=== PATIENT | female | born 1945 | race Hispanic/Latino ===

== ENCOUNTER 2017-12-24 17:05 | Emergency (ER) | payer OTHER ==
[2017-12-24] MEDS ORDERED: HYDROCODONE/APAP 5/325 MG TAB ONE (17:42)
--- NOTE | 2017-12-24 18:14 | RAD REPORT ---
EXAM DESCRIPTION: Shoulder Right 2 View - 12/24/2017 6:05 pm CLINICAL HISTORY: Fall, right shoulder pain COMPARISON: None. TECHNIQUE: Internal rotation and scapular Y-view obtained. FINDINGS: No dislocation of the humeral head. Degenerative change present at the undersurface of the acromion. No AC joint spurring. Humeral head fracture is identified not optimally visualized. This p rimarily involves the greater tuberosity. Approximately 3 mm of distraction noted. No pathologic comp onent. IMPRESSION: Proximal humeral head fracture as detailed. No dislocation.
[2017-12-24] MEDS ORDERED: MORPHINE 4 MG/ML SYR ONE (18:31)
--- NOTE | 2017-12-24 18:49 | EDPHYS ---
Physician Documentation [facility] Name: Daisy Corcoran Age: 72 yrs Sex: Female : 1945 Arrival Date: 12/24/2017 Time: 17:11 Bed 17 Private MD: ED Physician Gabe Muniz HPI: 12/24 18:42 This 72 yrs old Female presents to ER via EMS with complaints of Shoulder Pain.gs 18:42 The patient or guardian complains of decreased range of motion, deformity, an injury. gs right shoulder. Context: The problem was sustained at home, resulted from a fall, while walking. Onset: The symptoms/episode began/occurred acutely, just prior to arrival. Modifying factors: the symptoms are alleviated by nothing. The symptoms are aggravated by movement. Associated signs and symptoms: Pertinent negatives: Numbness in right arm. Severity of symptoms: At their worst the symptoms were moderate, in the emergency department the symptoms are unchanged. The patient has not experienced similar symptoms in the past. Historical: - Allergies: 17:19 grapes; jl7 17:19 Tomatoes; jl7 17:19 NKDA; jl7 - Home Meds: 17:19 chlorthalidone 25 mg Oral tab 1 tab once daily [Active]; clonidine HCl 0.2 mg Oral tab jl7 1 tab 2 times per day [Active]; felodipine 10 mg Oral Tb24 1 tab once daily [Active]; gabapentin 300 mg Oral cap 1 cap 3 times per day [Active]; hydralazine 50 mg Oral tab 1 tab three times a day [Active]; isosorbide mononitrate 60 mg Oral Tb24 1 tab once daily [Active]; levothyroxine 125 mcg tab 1 tab once daily [Active]; losartan potassium 100 mg daily [Active]; metoprolol tartrate 100 mg Oral tab 1 tab 2 times per day [Active]; omeprazole 40 mg Oral cpDR 1 cap once daily [Active]; oxybutynin chloride 5 mg Oral tr24 1 tab twice a day [Active]; prednisone 10 mg Oral tab once daily [Active]; ropinirole 0.25 mg Oral tab 1 tab daily [Active]; simvastatin 40 mg Oral tab 1 tab once daily [Active]; tramadol 50 mg Oral tab 2 tabs three times a day [Active]; vit D3 [Active]; - PMHx: 17:19 Hyperlipidemia; Hypertension; Hypothyroidism; jl7 - PSHx: 17:19 right wrist; jl7 - Immunization history:: Adult Immunizations up to date. - Social history:: Smoking status: Patient/guardian denies using tobacco. - Ebola Screening: : No symptoms or risks identified at this time. ROS: 18:42 All other systems are negative. gs Exam: 18:42 Head/Face: Normocephalic, atraumatic. Eyes: Pupils equal round and reactive to light, gs extra-ocular motions intact. Lids and lashes normal. Conjunctiva and sclera are non-icteric and not injected. Cornea within normal limits. Periorbital areas with no swelling, redness, or edema. ENT: Nares patent. No nasal discharge, no septal abnormalities noted. Tympanic membranes are normal and external auditory canals are clear. Oropharynx with no redness, swelling, or masses, exudates, or evidence of obstruction, uvula midline. Mucous membranes moist. Neck: Trachea midline, no thyromegaly or masses palpated, and no cervical lymphadenopathy. Supple, full range of motion without nuchal rigidity, or vertebral point tenderness. No Meningismus. Chest/axilla: Normal chest wall appearance and motion. Nontender with no deformity. No lesions are appreciated. Cardiovascular: Regular rate and rhythm with a normal S1 and S2. No gallops, murmurs, or rubs. Normal PMI, no JVD. No pulse deficits. Respiratory: Lungs have equal breath sounds bilaterally, clear to auscultation and percussion. No rales, rhonchi or wheezes noted. No increased work of breathing, no retractions or nasal flaring. Abdomen/GI: Soft, non-tender, with normal bowel sounds. No distension or tympany. No guarding or rebound. No evidence of tenderness throughout. Back: No spinal tenderness. No costovertebral tenderness. Full range of motion. Skin: Warm, dry with normal turgor. Normal color with no rashes, no lesions, and no evidence of cellulitis. Neuro: Awake and alert, GCS 15, oriented to person, place, time, and situation. Cranial nerves II-XII grossly intact. Motor strength 5/5 in all extremities. Sensory grossly intact. Cerebellar exam normal. Normal gait. 18:42 Constitutional: The patient appears alert, awake, uncomfortable. 18:42 Musculoskeletal/extremity: Pulses: are normal with no appreciated deficits, Joints: the right shoulder displays deformity, limited range of motion, pain at rest, painful range of motion, swelling, tenderness. Vital Signs: 17:15 BP 145 / 51; Pulse 69; Resp 18 S; Temp 97.8(O); Pulse Ox 95% on R/A; Weight 92.53 kg 7 (R); Height 5 ft. 4 in. (162.56 cm) (R); Pain 10/10; 18:15 BP 154 / 52; Pulse 65; Resp 16; Pulse Ox 95% on R/A; Pain 10/10; jl7 17:15 Body Mass Index 35.02 (92.53 kg, 162.56 cm) [facility] MDM: 17:26 Patient medically screened. 18:42 Differential diagnosis: Anterior dislocation with fracture, Posterior dislocation with gs fracture, humeral head fracture. Data reviewed: vital signs, nurses notes. Response to treatment: the patient's symptoms have mildly improved after treatment, and as a result, I will discharge patient. Physician consultation: Shree Sellers MD and will see patient in office, in 2-3 days. 12/24 17:26 Order name: Shoulder Right (2 View) XRAY; Complete Time: 18:16 12/24 18:21 Order name: Shoulder Right Wo Cont; Complete Time: 19:00 EDMS Administered Medications: 17:40 Drug: [place] 5 mg-325 mg 1 tabs Route: PO; [facility] 18:40 Follow up: Response: No adverse reaction; Pain is unchanged, physician notified [facility] 18:58 Drug: morphine 5 mg {Note: Administered IM to left deltoid per Dr. Muniz.} Route: IVP; [facility] Site: Other; Disposition: 12/24/17 18:48 Discharged to Home. Impression: 3-part fracture of surgical neck of right humerus. - Condition is Stable. - Discharge Instructions: Humerus Fracture Treated With Immobilization, [id number]. - Prescriptions for Tylenol- Codeine #4 300-60 mg Oral Tablet - take 1 tablet by ORAL route every 6 hours As needed; 12 tablet. - Medication Reconciliation Form, Thank You Letter, Antibiotic Education, Prescription Opioid Use form. - Follow up: Shree Sellers MD; When: 2 - 3 days; Reason: Recheck today's complaints, Re-evaluation by your physician. Signatures: Dispatcher [employer] EDDede Narayanan RN RN lp1 Pepito Lamb RN RN jl7 Gabe Muniz MD MD gs Corrections: (The following items were deleted from the chart) 19:28 18:48 12/24/2017 18:48 Discharged to Home. Impression: 3-part fracture of surgical neck lp1 of right humerus. Condition is Stable. Forms are Medication Reconciliation Form, Thank You Letter, Antibiotic Education, Prescription Opioid Use. Follow up: Dr. Shree Sellers; When: 2 - 3 days; Reason: Recheck today's complaints, Re-evaluation by your physician. gs
--- NOTE | 2017-12-24 18:49 | ER ---
Nurse's Notes [facility] Name: Daisy Corcoran Age: 72 yrs Sex: Female : 1945 Arrival Date: 12/24/2017 Time: 17:11 Bed 17 Private MD: Diagnosis: 3-part fracture of surgical neck of right humerus Presentation: 12/24 17:13 Presenting complaint: EMS states: She lost her footing while in the kitchen and fell on jl7 her right shoulder. She was laying on her right shoulder and it appeared to be hyperextended upon arrival. She did not hit her head and denies LOC. Transition of care: patient was not received from another setting of care. Onset of symptoms was December 24, 2017. Risk Assessment: Do you want to hurt yourself or someone else? Patient reports no desire to harm self or others. Initial Sepsis Screen: Does the patient meet any 2 criteria? No. Patient's initial sepsis screen is negative. Does the patient have a suspected source of infection? No. Patient's initial sepsis screen is negative. Care prior to arrival: Splint applied. Glucose check: 133. 17:13 Method Of Arrival: EMS: [facility] 17:13 Acuity: VIC 4 jl7 Triage Assessment: 17:15 General: Appears uncomfortable, Behavior is cooperative, appropriate for age. Pain: jl7 Complains of pain in right shoulder Pain currently is 10 out of 10 on a pain scale. Neuro: Level of Consciousness is awake, alert, obeys commands, Oriented to person, place, time, situation. Cardiovascular: Patient's skin is warm and dry. Respiratory: Airway is patent Respiratory effort is even, unlabored, Respiratory pattern is regular, symmetrical. Musculoskeletal: Range of motion: limited in right shoulder. Historical: - Allergies: 17:19 grapes; jl7 17:19 Tomatoes; jl7 17:19 NKDA; jl7 - Home Meds: 17:19 chlorthalidone 25 mg Oral tab 1 tab once daily [Active]; clonidine HCl 0.2 mg Oral tab jl7 1 tab 2 times per day [Active]; felodipine 10 mg Oral Tb24 1 tab once daily [Active]; gabapentin 300 mg Oral cap 1 cap 3 times per day [Active]; hydralazine 50 mg Oral tab 1 tab three times a day [Active]; isosorbide mononitrate 60 mg Oral Tb24 1 tab once daily [Active]; levothyroxine 125 mcg tab 1 tab once daily [Active]; losartan potassium 100 mg daily [Active]; metoprolol tartrate 100 mg Oral tab 1 tab 2 times per day [Active]; omeprazole 40 mg Oral cpDR 1 cap once daily [Active]; oxybutynin chloride 5 mg Oral tr24 1 tab twice a day [Active]; prednisone 10 mg Oral tab once daily [Active]; ropinirole 0.25 mg Oral tab 1 tab daily [Active]; simvastatin 40 mg Oral tab 1 tab once daily [Active]; tramadol 50 mg Oral tab 2 tabs three times a day [Active]; vit D3 [Active]; - PMHx: 17:19 Hyperlipidemia; Hypertension; Hypothyroidism; jl7 - PSHx: 17:19 right wrist; jl7 - Immunization history:: Adult Immunizations up to date. - Social history:: Smoking status: Patient/guardian denies using tobacco. - Ebola Screening: : No symptoms or risks identified at this time. Screenin:26 Abuse screen: Denies threats or abuse. Denies injuries from another. Nutritional jl7 screening: No deficits noted. Tuberculosis screening: No symptoms or risk factors identified. Fall Risk Fall in past 12 months (25 points). Total Oliver Fall Scale indicates Low Risk Score (25-44 pts). Fall prevention measures have been instituted. Side Rails Up X 2 Placed close to Nursing Station Frequent Obs/Assesments occuring Family Present and informed to notify staff if they need to leave bedside As available Patient and Family Educated on Fall Prevention Program and strategies. Assessment: 17:15 General: See triage assessment. jl7 18:15 Reassessment: No changes from previously documented assessment. Patient and/or family jl7 updated on plan of care and expected duration. Pain level reassessed. Patient is alert, oriented x 3, equal unlabored respirations, skin warm/dry/pink. 18:55 Reassessment: Dr. Muniz at bedside discussing plan of care. jl7 Vital Signs: 17:15 BP 145 / 51; Pulse 69; Resp 18 S; Temp 97.8(O); Pulse Ox 95% on R/A; Weight 92.53 kg jl7 (R); Height 5 ft. 4 in. (162.56 cm) (R); Pain 10/10; 18:15 BP 154 / 52; Pulse 65; Resp 16; Pulse Ox 95% on R/A; Pain 10/10; jl7 17:15 Body Mass Index 35.02 (92.53 kg, 162.56 cm) jl7 ED Course: 17:11 Patient arrived in ED. 17:12 Gabe Muniz MD is Attending Physician. gs 17:13 Pepito Lamb, SATINDER is Primary Nurse. jl7 17:15 Arm band placed on right wrist. jl7 17:16 Triage completed. jl7 17:26 Patient has correct armband on for positive identification. Bed in low position. Call jl7 light in reach. Side rails up X 1. Pulse ox on. NIBP on. 17:57 X-ray completed. Portable x-ray completed in exam room. Patient tolerated procedure ml well. 17:59 Shoulder Right (2 View) XRAY In Process Unspecified. EDMS 18:15 No provider procedures requiring assistance completed. Patient did not have IV access jl7 during this emergency room visit. 18:40 Shoulder Right Wo Cont In Process Unspecified. EDMS 18:48 Shree Sellers MD is Referral Physician. gs 19:10 Primary Nurse role handed off by Pepito Lamb RN jl7 19:27 Dede Casarez, RN is Primary Nurse. lp1 19:28 Sling applied to right arm. lp1 Administered Medications: 17:40 Drug: [place] 5 mg-325 mg 1 tabs Route: PO; jl7 18:40 Follow up: Response: No adverse reaction; Pain is unchanged, physician notified jl7 18:58 Drug: morphine 5 mg {Note: Administered IM to left deltoid per Dr. Muniz.} Route: IVP; jl7 Site: Other; Outcome: 18:48 Discharge ordered by . gs 19:27 Discharged to home via wheelchair, with significant other. lp1 19:27 Condition: good 19:27 Discharge instructions given to patient, significant other, Instructed on discharge instructions, follow up and referral plans. medication usage, Demonstrated understanding of instructions, follow-up care, medications, Prescriptions given X 1. 19:28 Patient left the ED. lp1 Signatures: Dispatcher [employer] EDOH Sharmila Maradiaga Isamar Bundy RN RN Dede Casarez, RN RN lp1 Pepito Lamb RN RN jl7 Gabe Muniz MD MD gs Corrections: (The following items were deleted from the chart) 19:04 06:58 morphine 5 mg IVP in Other jl7 jl7
--- NOTE | 2017-12-24 18:57 | RAD REPORT ---
EXAM DESCRIPTION: CT - Shoulder Right Wo Cont - 12/24/2017 6:40 pm CLINICAL HISTORY: Fall, shoulder pain, humerus fracture COMPARISON: Right shoulder same date TECHNIQUE: Axial 3 millimeter thick images of the shoulder were obtained with sagittal and coronal 2 millimeter reformatted images. FINDINGS: Transverse fracture is present near the surgical neck. There is an additional comminuted f racture involving the greater tuberosity. Fracture extends to the lateral margin of the bicipital yan ove. There is minimal impaction along the lateral aspect of the surgical neck fracture site. No patho logic bone process. Imaged portions of the scapula show no fracture. Degenerative changes involve the undersurface of the acromion. No AC joint separation. Acromial humeral joint space is still normal r zion. IMPRESSION: Comminuted proximal humerus fracture involving the surgical neck as well as the greater tuberosity. There is mild impaction. No dislocation. Humerus is internally rotated.
[2017-12-24 19:39] VITALS: BP 154/52; O2SAT 95
[2017-12-24 19:40] VITALS: TEMP 97.8
== END 2017-12-24 19:28 | disposition home or self-care (01) ==
LOC: ER 17:05
DX: S42.231A 3-part fracture of surgical neck of right humerus, initial encounter for closed fracture (principal); W18.30XA Fall on same level, unspecified, initial encounter; Y93.01 Activity, walking, marching and hiking; Y92.009 Unspecified place in unspecified non-institutional (private) residence as the place of occurrence of the external cause; Z91.018 Allergy to other foods; I10 Essential (primary) hypertension; E78.5 Hyperlipidemia, unspecified; E03.9 Hypothyroidism, unspecified
CPT/HCPCS: 73200; 96374; 99284

== ENCOUNTER 2019-03-27 09:11 | Inpatient (IN) | payer OTHER ==
[~2019-03-27 09:11] MED LIST: ETOMIDATE 20 MG/10 ML VIAL IV ONE; SUCCINYLCHOLINE 20 MG/ML (10 ML) IV ONE
--- OUTSIDE RECORDS SUMMARY | 2019-03-27 09:12 | XMS REPORT ---
:1945 Author Organization [facility] Address [facility] [place] [address] Care Team Providers Name Role Phone Unavailable Unavailable Unavailable Payers Payer Name Policy Type Policy Number Effective Date Expiration Date Problems This patient has no known problems. Allergies, Adverse Reactions, Alerts Allergy Allergy Status Severity Reaction(s) Onset Inactive Treating Comments Name Type Date Date Clinician manjinder REYNOSO Active Heath 2017-12 00:00:0 0 Medications This patient has no known medications.
[2019-03-27] MEDS ORDERED: LEVALBUTEROL 1.25 MG/3 ML NEB ONE (09:37)
[2019-03-27] MEDS ORDERED: CEFTRIAXONE/SWI 1gm 1 GM/10 ML SYR ONE (09:38)
[2019-03-27 09:40] LABS: Blood O2 Saturation 88.5 % (92-98.5)
[2019-03-27 09:45] LABS: Absolute Lymphocytes (CBC) 0.7 K/uL (0.7-4.9); Basophils % 1.3 % (0-1.3); Hematocrit 20.2 % (36.0-45.0); Lymphocytes % 8.5 % (15.3-44.8); MPV 9.1 fL (7.6-11.3); RBC Red Blood Cell Count 2.51 M/uL (3.86-4.86)
--- NOTE | 2019-03-27 09:45 | RAD REPORT ---
EXAM DESCRIPTION: RAD - Chest Single View - 03/27/2019 9:37 am CLINICAL HISTORY: SOB Chest pain. COMPARISON: Chest Pa And Lat (2 Views) dated 05/02/2017; Chest Single View dated 04/21/2017; Chest Si ngle View dated 09/09/2016; CHEST SINGLE VIEW dated 04/19/2012 FINDINGS: Portable technique limits examination quality. Severe bilateral pulmonary opacities are present probably representing pulmonary edema or pneumonia. The heart is mildly enlarged in size. No displaced fractures.
[2019-03-27 09:47] LABS: Protime INR 1.07
[2019-03-27 09:59] LABS: Urine Blood 2+ (NEG); Urine Glucose NEGATIVE (NEG); Urine Protein 3+ (NEG); Urine Specific Gravity 1.025 (1.005-1.030); Urine pH 5.5 (5.0-7.0)
[2019-03-27 10:03] LABS: ALT/SGPT 17 U/L (12-78); AST/SGOT 27 U/L (15-37); Albumin 2.2 g/dL (3.4-5.0); Alkaline Phosphatase 61 U/L (45-117); BUN Blood Urea Nitrogen 30 mg/dL (7-18); Bicarbonate 24 mmol/L (21-32); Bilirubin Direct 0.2 mg/dL (0-0.2); Bilirubin Total 0.5 mg/dL (0.2-1.0); CKMB Creatine Kinase MB 1.7 ng/mL (0.3-3.6); Creatine Phosphokinase 102 U/L (26-192); Glucose Level 142 mg/dL (74-106); Lipase 78 U/L (73-393); Potassium 4.5 mmol/L (3.5-5.1); Protein, Total 6.1 g/dL (6.4-8.2); Sodium Level 141 mmol/L (136-145); Troponin (Emerg Dept Use Only) < 0.02 ng/mL (0.0-0.045)
[2019-03-27 10:42] LABS: Urine Bacteria LOADED /HPF (<20); Urine Coarse Granular Casts 0-5 /LPF (NONE SEEN); Urine Culture Reflex Order REFLEXED; Urine Mucus 2+ /HPF (NONE SEEN)
[2019-03-27] MEDS ORDERED: NA CHLORIDE 0.9% 1,000 ML ONE (11:00)
--- NOTE | 2019-03-27 11:21 | ER ---
Nurse's Notes [facility] Name: Daisy Corcoran Age: 74 yrs Sex: Female : 1945 Arrival Date: 03/27/2019 Time: 09:15 Bed 7 Private MD: Diagnosis: Anemia, unspecified Presentation: 03/27 09:15 Transition of care: patient was not received from another setting of care. Onset of aa5 symptoms was March 27, 2019. Risk Assessment: Do you want to hurt yourself or someone else? Patient reports no desire to harm self or others. Initial Sepsis Screen: Does the patient meet any 2 criteria? RR > 20 per min. HR > 90 bpm. Yes Does the patient have a suspected source of infection? Yes: If YES to both, name of provider notified: Ming Ackerman MD. Care prior to arrival: Medication(s) given: Albuterol Neb x 1, Atrovent Neb x 1, IV initiated. 20 GA, in the left antecubital area, Oxygen administered. 09:15 Acuity: VIC 2 aa5 09:15 Method Of Arrival: EMS: [facility] aa5 09:15 Presenting complaint: EMS states: pt fell getting out of bed this morning. Reports aa5 generalized weakness x 2-3 days ago. EMS reports labored respirations upon scene arrival, audible wheezing, and O2 sat was 75% RA and increased to 94% with neb tx. Pt currently tachypneic with labored respirations. Reports nonproductive cough and decreased appetite. Triage Assessment: 09:15 General: Appears distressed, uncomfortable, Behavior is cooperative. Respiratory: aa5 Reports shortness of breath Onset: The symptoms/episode began/occurred this morning, the patient has severe shortness of breath. Historical: - Allergies: 09:25 grapes; aa5 09:25 NKDA; aa5 09:25 Tomatoes; aa5 - Home Meds: 09:25 chlorthalidone 25 mg Oral tab 1 tab once daily [Active]; clonidine HCl 0.2 mg Oral tab aa5 1 tab 2 times per day [Active]; felodipine 10 mg Oral Tb24 1 tab once daily [Active]; gabapentin 300 mg Oral cap 1 cap 3 times per day [Active]; hydralazine 50 mg Oral tab 1 tab three times a day [Active]; isosorbide mononitrate 60 mg Oral Tb24 1 tab once daily [Active]; levothyroxine 125 mcg tab 1 tab once daily [Active]; losartan potassium 100 mg daily [Active]; metoprolol tartrate 100 mg Oral tab 1 tab 2 times per day [Active]; omeprazole 40 mg Oral cpDR 1 cap once daily [Active]; oxybutynin chloride 5 mg Oral tr24 1 tab twice a day [Active]; prednisone 10 mg Oral tab once daily [Active]; ropinirole 0.25 mg Oral tab 1 tab daily [Active]; simvastatin 40 mg Oral tab 1 tab once daily [Active]; tramadol 50 mg Oral tab 2 tabs three times a day [Active]; vit D3 [Active]; - PMHx: 09:25 Hyperlipidemia; Hypertension; Hypothyroidism; aa5 - PSHx: 09:25 right wrist; aa5 - Ebola Screening: : No symptoms or risks identified at this time. - Social history:: Smoking status: Patient/guardian denies using tobacco. Screenin:20 Abuse screen: Denies threats or abuse. Nutritional screening: Decreased appetite x 2-3 aa5 days ago . Tuberculosis screening: No symptoms or risk factors identified. Fall Risk Fall in past 12 months (25 points). IV access (20 points). Total Oliver Fall Scale indicates High Risk Score (45 or more points). Fall prevention measures have been instituted. Side Rails Up X 2 Placed Close to Nursing Station. Assessment: 09:15 General: Appears uncomfortable, Behavior is calm, cooperative. aa5 09:15 Pain: Denies pain. Neuro: Level of Consciousness is awake, alert, obeys commands, aa5 Oriented to person, place, time, situation, Plant Pathologist are weak bilaterally Moves all extremities. Speech is normal, Facial symmetry appears normal, Pupils are PERRLA, Reports Generalized weakness . Cardiovascular: Heart tones S1 S2 present Rhythm is sinus tachycardia. Respiratory: Reports shortness of breath cough that is non-productive, Airway is patent Respiratory effort is labored, Respiratory pattern is tachypnea Breath sounds with wheezes bilaterally. GI: Abdomen is round non-distended, Bowel sounds present X 4 quads. Abd is soft and non tender X 4 quads. Patient currently denies nausea, vomiting. : Denies burning with urination, inability to void. EENT: No signs and/or symptoms were reported regarding the EENT system. Derm: Skin is dry, Skin is pale, Skin temperature is warm Bruising that is dark purple, on right upper chest. Musculoskeletal: Range of motion: intact in all extremities. 09:29 Reassessment: Lab at bedside attempting to collect 2nd set of blood cultures . aa5 09:36 Reassessment: Pt notified of wait time for lab results. . aa5 09:36 Neuro: Level of Consciousness is awake, alert, obeys commands, Oriented to person, aa5 place, time, situation. Respiratory: Airway is patent Respiratory effort is even, labored, Respiratory pattern is tachypnea. Derm: Skin is dry, Skin is pale, Skin temperature is warm. 09:45 Neuro: Level of Consciousness is awake, alert, obeys commands, Oriented to person, aa5 place, time, situation. Respiratory: Airway is patent Respiratory effort is even, labored, Respiratory pattern is tachypnea. Derm: Skin is dry, Skin is pale, Skin temperature is warm. 09:45 Reassessment: Pt reports SOB has improved slightly . aa5 10:25 Reassessment: Attempted to wean pt off oxygen using venti mask at this time per MD VO, aa5 O2 sat 83% via venti mask at 50% O2 (see VS). Pt was placed back on non-rebreather mask and O2 sat currently 97%. MD was notified of findings. . 10:30 Neuro: Level of Consciousness is awake, alert, obeys commands, Oriented to person, aa5 place, time, situation. Respiratory: Airway is patent Respiratory effort is even, unlabored, Respiratory pattern is tachypnea. Derm: Skin is dry, Skin is pale, Skin temperature is warm. 10:30 Reassessment: Reports SOB has improved. . aa5 11:30 Neuro: Level of Consciousness is awake, alert, obeys commands, Oriented to person, aa5 place, time, situation. Respiratory: Airway is patent Respiratory effort is even, unlabored, Respiratory pattern is tachypnea Breath sounds are clear bilaterally. Derm: Skin is dry, Skin is pale, Skin temperature is warm. 11:30 Cardiovascular: Rhythm is sinus rhythm. aa5 11:55 Reassessment: Pt states "I peed in the bed, I'm sorry". Pt cleaned and disposable pad aa5 applied under pt. . 12:30 Neuro: Level of Consciousness is awake, alert, obeys commands, Oriented to person, aa5 place, time, situation. Respiratory: Airway is patent Respiratory effort is even, unlabored, Respiratory pattern is regular, symmetrical. Derm: Skin is dry, Skin is pale, Skin temperature is warm. 12:30 Cardiovascular: Rhythm is sinus rhythm. aa5 12:40 Reassessment: Repeat lactate collected and sent to lab . aa5 12:40 Reassessment: Attempted to wean pt off non-rebreather mask using venti mask at 50% O2, aa5 O2 sat decreased to 84% via venti mask. Pt placed back on non-rebreather and O2 sat increased to 98%. Pt remains tachypneic, MD was notified of findings and order for Bi-PAP was obtained. . 12:48 Reassessment: RBC consent obtained and signed by pt's . . aa5 12:50 Reassessment: RT at bedside placing pt on Bi-PAP. Pt tolerating well. Bi-PAP settings: aa5 IPAP 14, EPAP 7, Rate 12, O2 50%. . 12:50 Neuro: Level of Consciousness is awake, alert, obeys commands, Oriented to person, aa5 place, time, situation. Respiratory: Airway is patent Respiratory effort is even, unlabored, Respiratory pattern is tachypnea. Derm: Skin is dry, Skin is pale, Skin temperature is warm. 13:35 Reassessment: RBC infusion started at 50ml/hr . aa5 13:35 Neuro: Level of Consciousness is awake, alert, obeys commands, Oriented to person, aa5 place, time, situation. Cardiovascular: Rhythm is sinus rhythm. Respiratory: Airway is patent Respiratory effort is even, unlabored, Respiratory pattern is tachypnea. Derm: Skin is dry, Skin is pale, Skin temperature is warm. 13:35 Respiratory: Breath sounds are clear bilaterally. aa5 13:50 Reassessment: RBC infusion now infusing at 150 ml/hr. Pt tolerating well. NSR on aa5 monitor. Lungs are clear bilaterally. . 13:50 Neuro: Level of Consciousness is awake, alert, obeys commands, Oriented to person, aa5 place, time, situation. Respiratory: Airway is patent Respiratory effort is even, unlabored, Respiratory pattern is tachypnea. Derm: Skin is dry, Skin is pale, Skin temperature is warm. 14:35 Reassessment: Resting in bed with eyes closed, respirations even and unlabored, skin is aa5 pale/warm/dry. . Cardiovascular: Rhythm is sinus rhythm. 14:35 Reassessment: Tolerating Bi-PAP well . aa5 15:25 Reassessment: RBC infusion complete upon arriving to ICU room 6. IV flushed with aa5 saline. Pt tolerated well. . Vital Signs: 09:15 BP 142 / 53; Pulse 105; Resp 50 S; Temp 98.8(O); Pulse Ox 84% on Nebulizer Mask; Pain aa5 0/10; 09:20 Weight 81.65 kg (R); aa5 09:25 Resp 44; Pulse Ox 95% on Non-rebreather mask; aa5 09:35 BP 142 / 53; Pulse 105; Resp 35 S; Pulse Ox 93% on Nebulizer Mask; aa5 10:25 Resp 33 S; Pulse Ox 83% on 50% Venturi mask; aa5 10:27 BP 135 / 45; Pulse 97; Resp 30 S; Pulse Ox 97% on Non-rebreather mask; aa5 10:45 BP 152 / 53; Pulse 97; Resp 32 S; Temp 98.7(O); Pulse Ox 99% on Non-rebreather mask; aa5 11:30 BP 121 / 96; Pulse 94; Resp 34 S; Pulse Ox 97% on Non-rebreather mask; aa5 12:30 BP 134 / 61; Pulse 97; Resp 30 S; Pulse Ox 97% on Non-rebreather mask; aa5 13:24 BP 138 / 87; Pulse 94; Resp 32 S; Temp 97.3(TE); Pulse Ox 97% on BiPAP; aa5 14:05 BP 149 / 58; Pulse 92; Resp 30 S; Temp 97.8(TE); Pulse Ox 98% on BiPAP; aa5 15:05 BP 150 / 57; Pulse 92; Resp 26 S; Temp 98.0(TE); Pulse Ox 98% on BiPAP; aa5 15:25 BP 146 / 62; Pulse 92; Resp 26 S; Temp 98.8(TE); Pulse Ox 97% on Non-rebreather mask; aa5 ED Course: 09:15 Patient arrived in ED. iw 09:15 Ming Ackerman MD is Attending Physician. kdr 09:15 Arm band placed on Patient placed in an exam room, on a stretcher. aa5 09:15 Patient has correct armband on for positive identification. Bed in low position. Call aa5 light in reach. Side rails up X2. 09:15 cardiac monitor technician on. Pulse ox on. NIBP on. aa5 09:17 Dina Piedra, RN is Primary Nurse. aa5 09:20 Inserted saline lock: 20 gauge in right antecubital area, using aseptic technique. iw 09:20 First set of blood cultures drawn by ED staff. aa5 09:27 EKG done, by computer service technician. reviewed by Ming Ackerman MD. at1 09:29 Initial lab(s) drawn, by ar, sent to lab. iw 09:30 Triage completed. aa5 09:36 Chest Single View XRAY In Process Unspecified. EDMS 09:36 Second set of blood cultures drawn by lab staff. aa5 09:50 Straight cath inserted, using sterile technique, 16 Fr. Specimen obtained. Returned aa5 cloudy urine. Patient tolerated well. 10:20 T\\T\\S collected, blood band applied to patient. jb1 11:18 Amaris Yañez MD is Hospitalizing Provider. kdr 13:28 CT Chest W/ Con In Process Unspecified. EDMS 15:00 No provider procedures requiring assistance completed. Patient admitted, IV remains in aa5 place. Administered Medications: 09:35 Drug: Xopenex (3) 1.25 mg Route: Inhalation; aa5 09:50 Drug: Rocephin 1 grams Route: IV; Rate: calculated rate; Site: left antecubital; aa5 10:50 Drug: NS 0.9% 1000 ml Route: IV; Rate: 1000 ml; Site: right antecubital; aa5 11:40 Follow up: IV Status: Completed infusion; IV Intake: 1000ml aa5 13:25 Drug: Cefepime 1 grams {Note: administered IVP over 3 minutes per pharmacy at this aa5 time. .} Route: IVPB; Rate: 200 ml/hr; Infused Over: 30 mins; Site: right antecubital; 13:34 Follow up: Response: No adverse reaction aa5 Point of Care Testing: Blood Glucose: 09:18 Blood Glucose: 144 mg/dL; aa5 Ranges: Intake: 11:40 IV: 1000ml; Total: 1000ml. aa5 Outcome: 11:20 Decision to Hospitalize by Provider. kdr 15:00 Admitted to ICU accompanied by nurse, family with patient, via stretcher, room ICU 6, aa5 on monitor, with chart, Other Oxygen via Non-rebreather mask Report called to SATINDER Ott 15:00 Condition: stable aa5 15:00 Instructed on the need for admit, Demonstrated understanding of instructions. 15:08 Patient left the ED. aa5 Signatures: Dispatcher [employer] EDMS Kwaku Anderson jb1 Ming Ackerman MD MD kdr Virginie Figueroa RN RN iw Dina Piedra RN RN aa5 Lottie Curtis, billing specialist EKG Tat1 Corrections: (The following items were deleted from the chart) 10:30 09:30 BP 142 / 53; Pulse 105bpm; Resp 35bpm; Spontaneous; Pulse Ox 93% Nebulizer Mask; aa5 aa5 10:34 09:15 Presenting complaint: EMS states: pt fell getting out of bed this morning. aa5 Reports generalized weakness x 2-3 days ago. EMS reports labored respirations upon scene arrival, audible wheezing, and O2 sat was 75% RA and increased to 94% with neb tx. Pt currently tachypneic with labored respirations. Reports nonproductive cough. aa5 16:05 15:03 Patient left the ED. aa5 aa5 17:13 09:15 Derm: Skin is dry, Skin is pale, Skin temperature is warm aa5 aa5
--- NOTE | 2019-03-27 11:21 | EDPHYS ---
Physician Documentation [facility] Name: Daisy Corcoran Age: 74 yrs Sex: Female : 1945 Arrival Date: 03/27/2019 Time: 09:15 Bed 7 Private MD: ED Physician Ming Ackerman HPI: 03/27 09:26 This 74 yrs old Female presents to ER via Unassigned with complaints of kdr Shortness Of Breath. 09:26 The patient has shortness of breath at rest, with light activity. Onset: The kdr symptoms/episode began/occurred gradually, 3 day(s) ago. Duration: The symptoms are continuous, and are steadily getting worse. The patient's shortness of breath is aggravated by coughing, exertion, light activity, walking, is alleviated by nothing. Associated signs and symptoms: Pertinent positives: non-productive cough, fever. Severity of symptoms: At their worst the symptoms were moderate in the emergency department the symptoms are unchanged. The patient has not experienced similar symptoms in the past. The patient has not recently seen a physician. Historical: - Allergies: 09:25 grapes; aa5 09:25 NKDA; aa5 09:25 Tomatoes; aa5 - Home Meds: 09:25 chlorthalidone 25 mg Oral tab 1 tab once daily [Active]; clonidine HCl 0.2 mg Oral tab aa5 1 tab 2 times per day [Active]; felodipine 10 mg Oral Tb24 1 tab once daily [Active]; gabapentin 300 mg Oral cap 1 cap 3 times per day [Active]; hydralazine 50 mg Oral tab 1 tab three times a day [Active]; isosorbide mononitrate 60 mg Oral Tb24 1 tab once daily [Active]; levothyroxine 125 mcg tab 1 tab once daily [Active]; losartan potassium 100 mg daily [Active]; metoprolol tartrate 100 mg Oral tab 1 tab 2 times per day [Active]; omeprazole 40 mg Oral cpDR 1 cap once daily [Active]; oxybutynin chloride 5 mg Oral tr24 1 tab twice a day [Active]; prednisone 10 mg Oral tab once daily [Active]; ropinirole 0.25 mg Oral tab 1 tab daily [Active]; simvastatin 40 mg Oral tab 1 tab once daily [Active]; tramadol 50 mg Oral tab 2 tabs three times a day [Active]; vit D3 [Active]; - PMHx: 09:25 Hyperlipidemia; Hypertension; Hypothyroidism; aa5 - PSHx: 09:25 right wrist; aa5 - Ebola Screening: : No symptoms or risks identified at this time. - Social history:: Smoking status: Patient/guardian denies using tobacco. ROS: 09:26 Constitutional: Negative for chills, and weight loss - the patinet has had subjective kdr fever Eyes: Negative for injury, pain, redness, and discharge, ENT: Negative for injury, pain, and discharge, Neck: Negative for injury, pain, and swelling, Cardiovascular: Negative for chest pain, palpitations, and edema, Abdomen/GI: Negative for abdominal pain, nausea, vomiting, diarrhea, and constipation, Back: Negative for injury and pain, : Negative for injury, bleeding, discharge, and swelling, MS/Extremity: Negative for injury and deformity, Skin: Negative for injury, rash, and discoloration, Neuro: Negative for headache, weakness, numbness, tingling, and seizure activity. Psych: Negative for depression, anxiety, suicide ideation, homicidal ideation, and hallucinations, Allergy/Immunology: Negative for hives, rash, and allergies, Endocrine: Negative for neck swelling, polydipsia, polyuria, polyphagia, and marked weight changes, Hematologic/Lymphatic: Negative for swollen nodes, abnormal bleeding, and unusual bruising. 09:26 Respiratory: Positive for wheezing, inspiratory, expiratory, of the right upper lobe, left upper lobe, right middle lobe, left lower lobe, right lower lobe, left posterior upper lobe, right posterior upper lobe, left posterior lower lobe, right posterior middle lobe and right posterior lower lobe. Exam: 09:26 Constitutional: This is a well developed, well nourished patient who is awake, alert, kdr and in mild to moderate distress. Head/Face: Normocephalic, atraumatic. Eyes: Pupils equal round and reactive to light, extra-ocular motions intact. Lids and lashes normal. Conjunctiva and sclera are non-icteric and not injected. Cornea within normal limits. Periorbital areas with no swelling, redness, or edema. Neck: Trachea midline, no thyromegaly or masses palpated, and no cervical lymphadenopathy. Supple, full range of motion without nuchal rigidity, or vertebral point tenderness. No Meningismus. Chest/axilla: Normal chest wall appearance and motion. Nontender with no deformity. No lesions are appreciated. Cardiovascular: Regular rate and rhythm with a normal S1 and S2. No gallops, murmurs, or rubs. Normal PMI, no JVD. No pulse deficits. Abdomen/GI: Soft, non-tender, with normal bowel sounds. No distension or tympany. No guarding or rebound. No evidence of tenderness throughout. Back: No spinal tenderness. No costovertebral tenderness. Full range of motion. Skin: Warm, dry with normal turgor. Normal color with no rashes, no lesions, and no evidence of cellulitis. MS/ Extremity: Pulses equal, no cyanosis. Neurovascular intact. Full, normal range of motion. Neuro: Awake and alert, GCS 15, oriented to person, place, time, and situation. Cranial nerves II-XII grossly intact. Motor strength 5/5 in all extremities. Sensory grossly intact. Cerebellar exam normal. Normal gait. 09:26 Respiratory: mild respiratory distress is noted, Respirations: labored breathing, that is mild, prolonged exhalation, that is mild, Breath sounds: rales, bronchial sounds, + upper airway congestion. wheezing: that is moderate, is heard diffusely, is heard in the right posterior middle lobe and right posterior lower lobe, Diffuse but worse from the right base. Vital Signs: 09:15 BP 142 / 53; Pulse 105; Resp 50 S; Temp 98.8(O); Pulse Ox 84% on Nebulizer Mask; Pain aa5 0/10; 09:20 Weight 81.65 kg (R); aa5 09:25 Resp 44; Pulse Ox 95% on Non-rebreather mask; aa5 09:35 BP 142 / 53; Pulse 105; Resp 35 S; Pulse Ox 93% on Nebulizer Mask; aa5 10:25 Resp 33 S; Pulse Ox 83% on 50% Venturi mask; aa5 10:27 BP 135 / 45; Pulse 97; Resp 30 S; Pulse Ox 97% on Non-rebreather mask; aa5 10:45 BP 152 / 53; Pulse 97; Resp 32 S; Temp 98.7(O); Pulse Ox 99% on Non-rebreather mask; aa5 11:30 BP 121 / 96; Pulse 94; Resp 34 S; Pulse Ox 97% on Non-rebreather mask; aa5 12:30 BP 134 / 61; Pulse 97; Resp 30 S; Pulse Ox 97% on Non-rebreather mask; aa5 13:24 BP 138 / 87; Pulse 94; Resp 32 S; Temp 97.3(TE); Pulse Ox 97% on BiPAP; aa5 14:05 BP 149 / 58; Pulse 92; Resp 30 S; Temp 97.8(TE); Pulse Ox 98% on BiPAP; aa5 15:05 BP 150 / 57; Pulse 92; Resp 26 S; Temp 98.0(TE); Pulse Ox 98% on BiPAP; aa5 15:25 BP 146 / 62; Pulse 92; Resp 26 S; Temp 98.8(TE); Pulse Ox 97% on Non-rebreather mask; aa5 MDM: 11:20 Patient medically screened. kdr 11:37 Data reviewed: vital signs, nurses notes, lab test result(s), radiologic studies. kdr Counseling: I had a detailed discussion with the patient and/or guardian regarding: the historical points, exam findings, and any diagnostic results supporting the discharge/admit diagnosis, lab results, radiology results, the need for further work-up and treatment in the hospital. 12 09:16 Order name: Basic Metabolic Panel; Complete Time: 10:06 kdr 12 09:16 Order name: Blood Culture Adult (2) kdr 12 09:16 Order name: CBC with Diff kdr 12 09:16 Order name: Ckmb; Complete Time: 10:06 kdr 12 09:16 Order name: CPK; Complete Time: 10:06 kdr 12 09:16 Order name: Lactate; Complete Time: 11:09 kdr 12 09:16 Order name: LFT's; Complete Time: 10:06 kdr 12 09:16 Order name: Lipase; Complete Time: 10:06 kdr 12 09:16 Order name: Procalcitonin; Complete Time: 11:09 kdr 1206 09:16 Order name: Protime (+inr); Complete Time: 10:06 kdr 1206 09:16 Order name: Ptt, Activated; Complete Time: 10:06 kdr 12 09:16 Order name: Troponin (emerg Dept Use Only); Complete Time: 10:06 kdr 12 09:16 Order name: Urine Microscopic Only; Complete Time: 11:09 kdr 03/27 09:22 Order name: ABG; Complete Time: 10:06 kdr 03/27 09:35 Order name: Glucose, Ancillary Testing; Complete Time: 10:06 EDMS 03/27 09:45 Order name: Type And Screen kdr 03/27 09:49 Order name: Bb Add On eb 03/27 09:53 Order name: Urine Dipstick--Ancillary (enter results); Complete Time: 10:06 eb 03/27 10:49 Order name: Urine Culture EDNM 03/27 10:49 Order name: Packed RBC Leukored EDMS 03/27 11:50 Order name: ABO/RH no charge EDNM 03/27 12:19 Order name: CBC Smear Scan EDNM 03/27 13:06 Order name: Lactate Sepsis 2 HR Follow-up EDNM 03/27 13:48 Order name: CBC with Automated Diff EDNM 03/27 13:48 Order name: CBC with Automated Diff EDNM 03/27 13:49 Order name: Comprehensive Metabolic Panel EDNM 03/27 13:49 Order name: Comprehensive Metabolic Panel EDNM 03/27 09:16 Order name: Chest Single View XRAY; Complete Time: 10:06 kdr 03/27 09:16 Order name: Accucheck; Complete Time: 09:26 kdr 03/27 09:16 Order name: Cardiac monitoring; Complete Time: 09:18 kdr 03/27 09:16 Order name: EKG - Nurse/Tech; Complete Time: 09:26 kdr 03/27 09:16 Order name: IV Saline Lock - Large Bore; Complete Time: 09:26 kdr 03/27 09:16 Order name: Labs collected and sent; Complete Time: 09:26 kdr 03/27 09:16 Order name: O2 Per Protocol; Complete Time: 09:18 kdr 03/27 09:16 Order name: O2 Sat Monitoring; Complete Time: 09:18 kdr 03/27 09:16 Order name: Urine Dipstick-Ancillary (obtain specimen); Complete Time: 09:50 kdr 03/27 09:50 Order name: Straight Cath - Urine; Complete Time: 09:50 aa 03/27 12:24 Order name: Labs - recollect needed: lactate sepsis; Complete Time: 12:41 iw 03/27 12:41 Order name: BIPAP aa5 03/27 12:52 Order name: CT Chest W/ Con kdr 03/27 13:00 Order name: EKG Electrocardiogram EDMS 03/27 13:48 Order name: CONS Pharmacy Consult EDMS 03/27 13:48 Order name: CONS Pharmacy Consult EDMS 03/27 13:48 Order name: Clear Liquid EDMS 03/27 13:49 Order name: Troponin I EDMS 03/27 13:49 Order name: Troponin I EDMS 03/27 13:49 Order name: Vancomycin Level Trough EDMS 03/27 13:49 Order name: Vancomycin Level Trough EDMS 03/27 13:51 Order name: Sputum Culture EDMS Administered Medications: 09:35 Drug: Xopenex (3) 1.25 mg Route: Inhalation; aa5 09:50 Drug: Rocephin 1 grams Route: IV; Rate: calculated rate; Site: left antecubital; aa5 10:50 Drug: NS 0.9% 1000 ml Route: IV; Rate: 1000 ml; Site: right antecubital; aa5 11:40 Follow up: IV Status: Completed infusion; IV Intake: 1000ml aa5 13:25 Drug: Cefepime 1 grams {Note: administered IVP over 3 minutes per pharmacy at this aa5 time. .} Route: IVPB; Rate: 200 ml/hr; Infused Over: 30 mins; Site: right antecubital; 13:34 Follow up: Response: No adverse reaction aa5 Point of Care Testing: Blood Glucose: 09:18 Blood Glucose: 144 mg/dL; aa5 Ranges: Critical Glucose Levels:Adult <50 mg/dl or >400 mg/dl <40 mg/dl or >180 mg/dl Disposition: 03/27/19 11:20 Hospitalization ordered by Amaris Yañez for Observation. Preliminary diagnosis is Anemia, unspecified. - Bed requested for Intensive Care Unit. - Status is Observation. aa5 - Condition is Fair. - Problem is new. - Symptoms have improved. UTI on Admission? No Signatures: Dispatcher [employer] EDMS Ming Ackerman MD MD kdr Williams, Irene, RN RN iw Calderon, Audri, RN RN aa5 Reginaldo Lovell, GIOC [id number] Jay Jay Martinez RN RN ja1 Garcia, Ragini eb Corrections: (The following items were deleted from the chart) 10:49 09:46 PACKED RBC LEUKORED -1+BB.LAB.BRZ ordered. [facility] EDNM 10:49 09:47 ABO/RH typing ordered. [facility] EDNM 10:49 09:47 Antibody Screen ordered. [facility] EDMS 11:45 11:20 Hospitalization Ordered by Amaris Yañez MD for Observation. Preliminary eb diagnosis is Anemia, unspecified. Bed requested for Telemetry/MedSurg (observation). Status is Observation. Condition is Fair. Problem is new. Symptoms have improved. UTI on Admission? No. kdr 13:47 11:45 03/27/2019 11:20 Hospitalization Ordered by Amaris Yañez MD for Observation. ja1 Preliminary diagnosis is Anemia, unspecified. Bed requested for Telemetry/MedSurg (observation). Status is Observation. Condition is Fair. Problem is new. Symptoms have improved. UTI on Admission? No. eb 15:03 13:47 03/27/2019 11:20 Hospitalization Ordered by Amaris Yañez MD for Observation. aa5 Preliminary diagnosis is Anemia, unspecified. Bed requested for Intensive Care Unit. Status is Observation. Condition is Fair. Problem is new. Symptoms have improved. UTI on Admission? No. ja1
[2019-03-27 12:19] LABS: Blood Morphology Comment NOT SEEN (NOT SEEN); Platelet Estimate ADEQ; Urine White Blood Cell Casts OK
[2019-03-27] MEDS ORDERED: NA CHLORIDE 0.9% 250 ML ONE ×2 (12:59→13:32)
[2019-03-27] MEDS ORDERED: CEFEPIME/SWI 1gm 10 ML IVP ONE (13:30)
[2019-03-27] MEDS ORDERED: NA CHLORIDE 0.9% 100 ML IV ONE (13:36)
[2019-03-27] MEDS ORDERED: ONDANSETRON 4 MG/2 ML VIAL IV PRN (13:37)
[2019-03-27] MEDS ORDERED: ACETAMINOPHEN 500 MG TAB PO PRN (13:37)
[2019-03-27] MEDS ORDERED: MORPHINE 2 MG/ML SYR IV PRN (13:37)
--- NOTE | 2019-03-27 13:40 | RAD REPORT ---
EXAM DESCRIPTION: CT - Thorax W/ Con CLINICAL HISTORY: Chest pain pneumonia COMPARISON: Chest For Pe Angio dated 09/09/2016; Chest Single View dated 03/27/2019 FINDINGS: Extensive bilateral alveolar lung opacities are present with air bronchograms. No signific ant pleural effusion or pericardial effusion. No pneumothorax. Several mildly prominent mediastinal lymph nodes are present. No concerning bony finding. Cholecystectomy clips. All CT scans are performed using dose optimization technique as appropriate and may include automated exposure control or mA/KV adjustment according to patient size. IMPRESSION: Extensive alveolar pulmonary opacities are present bilaterally with air bronchograms lik bonnie representing pneumonia.
[2019-03-27] MEDS ORDERED: VANCOMYCIN 1.25 GM in NA CHLORIDE 0.9% 250 ML IVPB SCH (14:00)
[2019-03-27] MEDS ORDERED: NA CHLORIDE 0.9% 250 ML IV SCH (14:00)
[2019-03-27] MEDS ORDERED: PIPER/TAZO/NS 3.375gm 3.375 GM/100 ML BAG IV ONE (15:00)
[2019-03-27] MEDS ORDERED: VANCOMYCIN 2 GM in NA CHLORIDE 0.9% 500 ML IVPB ONE (15:00)
[2019-03-27 15:17] LABS: Ferritin 18.7 ng/mL (8-388)
[2019-03-27] MEDS: IPRATROPIUM BROM 0.5MG/2.5ML NEB SCH ×3 (15:30→20:00)
[2019-03-27] MEDS: ALBUTEROL 2.5 MG/3 ML NEB SOL NEB PRN ×3 (15:30→20:49)
--- NOTE | 2019-03-27 15:34 | EKG ---
Test Date: 2019-03-27 Test Time: 09:24:02 Crm Marketing Executive: MICHELLE MEASUREMENT RESULTS: Intervals: Rate: 102 TX: 140 QRSD: 76 QT: 348 QTc: 453 [place]: P: 59 TX: 140 QRS: 9 T: 38 INTERPRETIVE STATEMENTS: Sinus tachycardia Otherwise normal ECG Compared to ECG 04/21/2017 02:23:12 No significant changes Electronically Signed On 03-27-19 15:34:04 [employer] DEVELOPER by Neri Dash
[2019-03-27] MEDS: METHYLPREDNISOLONE 125 MG INJ IV SCH ×2 (16:05→21:05)
[2019-03-27] MEDS: GUAIFENESIN 600 MG SA TAB PO SCH ×2 (16:05→21:00)
[2019-03-27] MEDS: Levofloxacin500mg IV 500 MG/100 ML BAG IV SCH (16:05)
[2019-03-27] MEDS: NA CHLORIDE 0.9% 1,000 ML IV SCH (16:08)
[2019-03-27] MEDS ORDERED: HEPARIN 5000 UNIT/ML 1 ML VIAL SQ SCH (17:00)
[2019-03-27] MEDS ORDERED: FUROSEMIDE 40 MG/4 ML VIAL IV SCH (17:00)
[2019-03-27] MEDS: HYDRALAZINE HCL 20 MG/ML VIAL IV PRN (21:06)
[2019-03-27] MEDS: METOPROLOL TARTRATE 5 MG/5 ML INJ IV PRN (22:50)
[2019-03-28] MEDS: PIPER/TAZO/NS 3.375gm 3.375 GM/100 ML BAG IVPB SCH ×2 (00:25→09:35)
--- NOTE | 2019-03-28 01:02 | HP ---
Date of Admission: 03/27/2019 Presenting Complaint: Shortness of breath. History Of Present Illness: Ms. Nilo Villa is a 74-year-old female with past medical history of hypertension, hypothyroidism, hyperlipidemia, no history of coronary artery disease or CHF, history o f recurrent pneumonia on average once every year presented because of shortness of breath, cough, and fever with chills since the last 1 week. She denies any cough contact. She admit to exertion on dy spnea with increasing weakness. She denies any hematemesis or bloody stools. She denies any trauma. She denies any abdominal pain. She admits to generalized ache, fever and generalized malaise and w eakness. She presented today because of worsening symptoms. In the ED, O2 saturation was low 80s on room air. She was started on nasal cannula O2. She was also noted with elevated lactate of 3.0 and given IV fluids after which her shortness of breath continued to worsen. She is currently receiving non-rebreather mask now. She states she was never intubated in the past, but was told she may have CHF, although was later told she does not have CHF during admission for pneumonia a year ago at [facility]. is at bedside helping with history. Past Medical History: Significant for hypertension, hypothyroidism, and hyperlipidemia. Home Medications: See medication list. Nothing to reconcile medications. Allergies: TOMATOES AND GRAPES. NO KNOWN DRUG ALLERGY. Social History: Patient is a lifelong nonsmoker. No history of alcohol or illicit drug use. She re sides in the community with the spouse. Family History: Significant for mom with history of breast cancer. Review of Systems: All systems reviewed x14 were negative except as mentioned above. Physical Examination: Current Vitals: Blood pressure of 134/76, respiratory rate of 39 on non-rebreather mask, O2 saturati on of 96%. Temperature afebrile at 99.1. Heart rate of 102. General: Elderly female in moderate respiratory distress significantly pale. HEENT: Head is atraumatic, normocephalic. Pupils equal, reactive to light. Anicteric. Dry oral mu cosa. Neck: No JVD. No carotid bruit. Respiratory: Coarse crepitations with bilateral mild expiratory wheeze. Cardiovascular: S1, S2. Tachycardic. GI: Abdomen full, soft, nontender. No hepatosplenomegaly. Extremities: 1+ bilateral pedal edema. No calf tenderness. Neuro: Patient is alert, conversant, although having significant dyspnea on speaking. Laboratory Data: EKG, normal sinus rhythm at 102 beats per minute. No ST-segment changes. Chest x- ray shows bilateral infiltrates consistent with possible fluid vessels pneumonia. CT obtained in the office shows extensive alveolar pulmonary opacities with air bronchograms consistent with pneumonia. Rest of labs: WBC 8.2, hemoglobin 6.6, platelet 232, neutrophils 87%, no bands. INR 1.07, pH 7.4, p CO2 37, PO2 58. Sodium 141, potassium 4.5, creatinine 1.5, glucose 142. Lactic acid 3.4. Repeat do wn to 1.7. Albumin 2.2. Procalcitonin of 0.21. Impression: 1.Bilateral pneumonia/multifocal pneumonia-likely community-acquired. 2.Impending sepsis with systemic inflammatory response syndrome. 3.Anemia of chronic blood loss. 4.Acute kidney injury. 5.History of hypertension. Plan: 1.We will admit patient to the ICU given worsening respiratory status. We will initiate patient on BiPAP now. We will start empirical antibiotics with vancomycin, Levaquin and Zosyn. Follow blood cu lture. Obtain sputum for culture and sensitivity. We will obtain a stat CT, which has not been done given absence of pulmonary edema on CT. We start patient on IV fluids. We will hold off diuretics for now. We will also give a dose of IV Solu-Medrol. 2.Hypertension, borderline, low now. Hold of BP medications. IV hydralazine as needed. 3.Hypothyroidism. We will obtain TSH and resume Synthroid. 4.Deep venous thrombosis prophylaxis subcutaneus Lovenox. 5.Advanced directives. Patient is full code. Patient is critically sick. Risk of this conversatio n explained with family. If patient continue to worsen, may need intubation today. Total time spent in evaluation of patient, review of record: Greater than 70 minutes of critical car e time. EO/MODL Voice ID: [id number]
[2019-03-28 01:10] LABS: Hematocrit 26.3 % (36.0-45.0)
[2019-03-28] MEDS: IPRATROPIUM BROM 0.5MG/2.5ML NEB SCH ×4 (02:00→19:52)
[2019-03-28] MEDS: NA CHLORIDE 0.9% 1,000 ML IV SCH (03:20)
[2019-03-28 04:59] LABS: Absolute Lymphocytes (CBC) 0.5 K/uL (0.7-4.9); Basophils % 0.6 % (0-1.3); Hematocrit 25.6 % (36.0-45.0); Lymphocytes % 6.7 % (15.3-44.8); MPV 9.1 fL (7.6-11.3); RBC Red Blood Cell Count 3.15 M/uL (3.86-4.86)
[2019-03-28] MEDS: HYDRALAZINE HCL 20 MG/ML VIAL IV PRN ×2 (05:00→08:10)
[2019-03-28 05:23] LABS: Potassium 4.2 mmol/L (3.5-5.1)
[2019-03-28 05:24] LABS: Bilirubin Total 0.7 mg/dL (0.2-1.0); Protein, Total 5.9 g/dL (6.4-8.2); Troponin I 0.07 ng/mL (0.0-0.045)
[2019-03-28] MEDS: METOPROLOL TARTRATE 5 MG/5 ML INJ IV PRN (05:41)
[2019-03-28] MEDS: LEVOTHYROXINE SOD 0.125 MG TAB PO SCH (05:41)
[2019-03-28] MEDS: ALBUTEROL 2.5 MG/3 ML NEB SOL NEB PRN (08:00)
[2019-03-28] MEDS ORDERED: FLUTICASONE FUROATE IN PRN (08:09)
--- NOTE | 2019-03-28 08:20 | P.PN ---
Subjective Date of Service: 03/28/19 Chief Complaint: seen , still on bipap , admit to nose congestion , denies any chest pain Subjective: No new changes Review of Systems 10-point ROS is otherwise unremarkable Physical Examination - Vital Signs Temperature: 98 F Blood Pressure: 195/73 Pulse: 80 Respirations: 39 Pulse Ox (%): 98 - Physical Exam General: Alert, In no apparent distress, Oriented x3 HEENT: Atraumatic, Normocephalic Neck: Supple, 2+ carotid pulse no bruit Respiratory: Diminished, Crackles/rales Cardiovascular: No edema, Normal pulses, Regular rate/rhythm Gastrointestinal: Normal bowel sounds, Soft and benign, Non-distended Integumentary: No rashes, No breakdown Neurological: Normal gait, Normal speech - Studies Laboratory Data (last 24 hrs) 03/27/19 09:20: PT 12.6 H, INR 1.07, APTT 36.9 03/27/19 09:20: WBC 8.2, Hgb 6.6 L*, Hct 20.2 L*, Plt Count 232 03/27/19 09:20: Sodium 141, Potassium 4.5, BUN 30 H, Creatinine 1.52 H, Glucose 142 H, Total Bilirubin 0.5, AST 27, ALT 17, Alkaline Phosphatase 61, Lipase 78 03/27/19 12:40: Lactic Acid 1.7 03/27/19 10:15: ABO/Rh A POSITIVE, Antibody Screen Negative, Crossmatch See Detail 03/27/19 09:53: Urine pH 5.5, Ur Specific [place] 1.025, Urine Ketones Negative , Urine Blood 2+ H, Urine Nitrite Negative, Ur Leukocyte Esterase Negative, Urine Glucose Negative, Urine Total Protein 3+ H 03/27/19 09:50: Urine RBC 10-20 H, Urine WBC 5-10 H, Ur Squamous Epith Cells <5 , Urine Bacteria Loaded H, Coarse Granular Casts 0-5, Urine Mucus 2+, Urine Culture Reflexed Reflexed 03/27/19 09:45: ABO/Rh Cancelled, Antibody Screen Cancelled, Crossmatch See Detail 03/27/19 09:37: pH 7.41, pCO2 37.0, pO2 58.3 L, HCO3 23.0, Base Excess -1.0, Oxyhemoglobin 86.0 L, ABG O2 Sat (Measured) 88.5 L, ABG Carboxyhemoglobin 2.0 H , ABG Methemoglobin 0.8, Other Total Hgb 6.5 L, Inspired O2 100.0 03/27/19 09:23: POC Glucose 144 H 03/27/19 09:20: Iron 12.0 L, TIBC 228 L, Transferrin 163 L, Transferrin % Sat 5.3 L, Ferritin 18.7 03/27/19 09:20: ABO/Rh A POSITIVE 03/27/19 09:20: PT 12.6 H, INR 1.07, APTT 36.9 03/27/19 09:20: Procalcitonin 0.21 03/27/19 09:20: Lactic Acid 3.4 H 03/27/19 09:20: WBC 8.2, RBC 2.51 L, Hgb 6.6 L*, Hct 20.2 L*, MCV 80.3, MCH 26.3 L, MCHC 32.7, RDW 15.0, Plt Count 232, MPV 9.1, Neutrophils % 87.5 H, Lymphocytes % 8.5 L, Monocytes % 2.7 L, Eosinophils % 0.0, Basophils % 1.3, Absolute Neutrophils 7.2, Absolute Lymphocytes 0.7, Absolute Monocytes 0.2, Absolute Eosinophils 0.0, Absolute Basophils 0.1, Morphology Comment Not seen 03/27/19 09:20: Sodium 141, Potassium 4.5, Chloride 109 H, Carbon Dioxide 24, BUN 30 H, Creatinine 1.52 H, Estimated GFR 33 L, Glucose 142 H, Calcium 8.0 L, Total Bilirubin 0.5, Direct Bilirubin 0.2, AST 27, ALT 17, Alkaline Phosphatase 61, Creatine Kinase 102, CK-MB (CK-2) 1.7, Rapid Troponin I < 0.02, Serum Total Protein 6.1 L, Albumin 2.2 L, Globulin 3.9 H, Albumin/Globulin Ratio 0.6 L, Lipase 78 Laboratory Data (last 24 hrs) 03/27/19 09:20: PT 12.6 H, INR 1.07, APTT 36.9 03/27/19 09:20: WBC 8.2, Hgb 6.6 L*, Hct 20.2 L*, Plt Count 232 03/27/19 09:20: Sodium 141, Potassium 4.5, BUN 30 H, Creatinine 1.52 H, Glucose 142 H, Total Bilirubin 0.5, AST 27, ALT 17, Alkaline Phosphatase 61, Lipase 78 Assessment & Plan - Problems (Diagnosis) (1) Bilateral pneumonia Current Visit: Yes Status: Acute (2) HTN (hypertension) Onset Date: 04/24/17 Current Visit: No Status: Chronic Qualifiers: (3) Hypothyroidism Current Visit: No Status: Chronic Qualifiers: (4) Pneumonia Current Visit: No Status: Resolved Qualifiers: Discharge Plan: Home Plan to discharge in: Greater than 2 days - Code Status/Comfort Care Code Status Assessed: Yes Code Status: Full Code Physician Review: Patient Assessed, Agree with Above Assessment and Plan Physician Review Additional Text: # B/l PNA - continue abx -vanco/lev/zosyn - still high resp rate despite bipap - bordelrine adequate p02 on ABG from this am - c/w IVF and abx - will consult pulmonary - follow blood cx and sputum c/s # ACUTE RESP FAILURE - ON BIPAP # htn -ELEVATED , WILL RESUME HOME MEDS -verapamil and hydralzine -c/w to hold losartan -add clonidine bid # ARF -improving to cr of 1.39 , c/w IVF -hold losartan # DVT prop - on sc heparin still clinically unstable , c/w care in ICU for now Critical Care: Yes
[2019-03-28 08:58] LABS: Arterial Blood Carboxyhemoglob 1.7 % (0-1.5); Blood Gas Oxyhemoglobin 93.6 % (94-97); Blood O2 Saturation 95.9 % (92-98.5)
[2019-03-28] MEDS ORDERED: HOME MED 1 EA UNK (Ropinirole Hcl [Ropinirole Hcl] 0.5 MG) PO SCH (09:00)
[2019-03-28] MEDS ORDERED: HEMORRHOIDAL SUPPOS PR PRN (09:22)
[2019-03-28] MEDS: cloNIDine HCL 0.1 MG TAB PO SCH ×2 (09:30→20:41)
[2019-03-28] MEDS: FERROUS SULFATE 325 MG TAB PO SCH ×2 (09:31→20:41)
[2019-03-28] MEDS: GUAIFENESIN 600 MG SA TAB PO SCH ×2 (09:31→20:41)
[2019-03-28] MEDS: HYDRALAZINE HCL 25 MG TABLET PO SCH ×3 (09:32→20:41)
[2019-03-28] MEDS: ROPINIROLE HCL 0.25 MG TAB PO SCH ×2 (09:33→20:41)
[2019-03-28] MEDS: VERAPAMIL SR 180 MG TAB PO SCH (09:33)
[2019-03-28] MEDS: METHYLPREDNISOLONE 125 MG INJ IV SCH ×2 (09:35→18:00)
[2019-03-28] MEDS ORDERED: LORazepam 2 MG/ML VIAL IV PRN (10:47)
--- NOTE | 2019-03-28 10:48 | P.CNS ---
Date of Consult: 03/28/19 Reason for Consult: Respiratory failure pneumonia Chief Complaint: Respiratory failure pneumonia History of Present Illness: Patient is 74 years of age admitted with 4 day history of progressive worsening cough shortness of breath, weakness was admitted with respiratory failure bilateral pneumonia anemia renal failure patient is currently on BiPAP Allergies gr Allergy (Uncoded 09/09/16 07:13) Unknown grapes Allergy (Uncoded 04/16/17 12:36) Unknown tomatoes Allergy (Uncoded 09/09/16 07:13) Unknown Home Medications: Albuterol Sulfate [Ventolin Hfa] 1 puff IH Q4HP PRN 03/27/19 Aspirin Chewable [Aspirin Chewable*] 81 mg PO DAILY 03/27/19 Baclofen 10 mg PO DAILYPRN PRN 03/27/19 Budesonide/Formoterol Fumarate [Symbicort 160-4.5 Mcg Inhaler] 2 inh IN DAILY Bumetanide 1 mg PO DAILYPRN PRN 03/27/19 Fluticasone Furoate [Arnuity Ellipta] 1 spray IN DAILYPRN PRN 03/27/19 Gabapentin 300 mg PO BID 03/27/19 Hydralazine HCl 50 mg PO TID 03/27/19 Levothyroxine [Synthroid*] 0.1 mg PO DAILY 03/27/19 Losartan Potassium 25 mg PO DAILY 03/27/19 Montelukast Sodium 10 mg PO BEDTIME 03/27/19 Omeprazole [Prilosec] 40 mg PO DAILY 03/27/19 Ropinirole HCl 0.5 mg PO BID 03/27/19 Simvastatin 40 mg PO BEDTIME 03/27/19 Verapamil HCl [Verapamil ER] 180 mg PO DAILY 03/27/19 - Past Medical/Surgical History Diabetic: No -: shingles -: hyperlipidemia -: HTN -: hypothyroidism -: Asthma -: knee surgery -: cholecystectomy - Social History Smoking Status: Unknown if ever smoked Alcohol use: No CD- Drugs: No Caffeine use: No Place of Residence: Home Review of Systems 10-point ROS is otherwise unremarkable General: Weakness Respiratory: Shortness of Breath Physical Examination Temp Pulse Resp BP Pulse Ox 98 F 98 H 39 H 168/102 H 98 03/28/19 08:20 03/28/19 09:33 03/28/19 08:20 03/28/19 09:33 03/28/19 08:20 General: Alert, Oriented x3, Moderate distress Respiratory: Crackles/rales (Crackles bilaterally) Cardiovascular: No edema, Regular rate/rhythm Laboratory Data (last 24 hrs) 03/27/19 09:20: WBC 8.2, Hgb 6.6 L*, Hct 20.2 L*, Plt Count 232 - Problems (1) Respiratory failure Current Visit: Yes Status: Acute Plan: Patient is 74 years of age admitted with respiratory failure bilateral pulmonary infiltrates severe anemia a renal insufficiency 4+ gram-negative rods in the urine Dc Zosyn continue with levofloxacin vancomycin blood cultures are all negative pro calcitonin level negative renal function is slightly worse CT scan chest x-ray all reviewed differential diagnosis include atypical pneumonia pulmonary renal syndrome of ordered PE N/C ANCA anti glomerular basement antibody. Continue to monitor hemoglobin reduce the dose of steroids Dc IV fluids IV Lasix maintain a negative fluid balance patient has 2 units of packed red blood cells increase BiPAP settings oxygenation so far satisfactory patient is anxious not stable for bronchoscopy increase BiPAP to 12 Qualifiers: Chronicity: acute
[2019-03-28] MEDS: METHYLPREDNISOLONE 40 MG INJ IV SCH ×2 (10:56→17:00)
[2019-03-28] MEDS ORDERED: FUROSEMIDE 20 MG/ 2ML VIAL IV ONE ×2 (11:00→15:00)
[2019-03-28] MEDS ORDERED: ALBUTEROL 2.5 MG/3 ML NEB SOL NEB SCH (12:00)
[2019-03-28] MEDS: ALBUTEROL 2.5 MG/3 ML NEB SOL NEB SCH ×2 (13:10→19:52)
[2019-03-28] MEDS: Levofloxacin500mg IV 500 MG/100 ML BAG IV SCH (13:58)
--- NOTE | 2019-03-28 15:05 | RAD REPORT ---
EXAM DESCRIPTION: US - Renal Ultrasound-Complete - 03/28/2019 2:49 pm CLINICAL HISTORY: Acute renal insufficiency COMPARISON: None. FINDINGS: The right kidney measures 11 cm with an increased echotexture. The left kidney measures 11 cm with an increased echotexture. Hydronephrosis is not seen. Small bilateral renal cysts Duarte catheter is present within a collapsed bladder IMPRESSION: Increased renal echotexture consistent with parenchymal disease
[2019-03-28 16:25] LABS: Urine Protein/Creatinine Ratio 15.94 ratio (<0.15)
[2019-03-28] MEDS ORDERED: MAGNES/ALUMIN/SIMET 30ML UCUP PO PRN (16:58)
[2019-03-28] MEDS ORDERED: METHYLPREDNISOLONE 40 MG INJ IV SCH (17:00)
[2019-03-28] MEDS ORDERED: PROPOFOL 1,000 MG/100 ML VIAL IV ONE (18:23)
[2019-03-28] MEDS ORDERED: RSI MEDICATION KIT IV ONE (18:23)
--- NOTE | 2019-03-28 18:45 | P.PN ---
Date of Service: 03/28/19 I was called to evaluate patient because she has more respiratory distress even on the BIPAP. FiO2 increased to 100% on a BIPAP setting of 16/[address] chest reviewed and demonstrate severe bilateral alveolar opacification indicating pneumonia. Patient noted witha respiratory rate of 30 to 40 on the BIPAP. She developed nose bleed when the nurse attempted to insert an NG tube and had to placed on 100% non-rebreather. She signed a DNR paper this morning. I had a discussion with the family regarding her Living will and DNR. Family and patient want to proceed with intubation and mechanical ventilation. She is DNR. Patient intubated and placed on mechanical ventilation Propofol for sedation Recommend periodic suctioning Continue current antibiotics. Titrate O2 and PEEP.
[2019-03-28] MEDS: FENTANYL CITR 100 MCG/2 ML ONE (19:06)
[2019-03-28] MEDS: FENTANYL CITR 100 MCG/2 ML IV PRN (19:10)
[2019-03-28] MEDS ORDERED: MIDAZOLAM HCL 2 MG/2 ML INJ IV PRN (19:14)
[2019-03-28] MEDS ORDERED: NA CHLORIDE 0.9% 250 ML IV PRN (19:14)
[2019-03-28] MEDS ORDERED: HALOPERIDOL LACT 5 MG/ML INJ IV PRN (19:14)
--- NOTE | 2019-03-28 19:25 | RAD REPORT ---
EXAM DESCRIPTION: [place] Single View03/28/2019 7:11 pm CLINICAL HISTORY: Intubation COMPARISON: March 27, 2019 FINDINGS: An endotracheal tube has been inserted with its tip well above the carlos. An orogastric tube has been inserted 3 centimeters into the stomach Extensive bilateral alveolar opacities are without significant change The heart remains enlarged
[2019-03-28] MEDS ORDERED: FAMOTIDINE 20 MG/2 ML VIAL IV SCH (21:00)
[2019-03-28] MEDS: PROPOFOL 1,000 MG/100 ML VIAL IV PRN (21:27)
[2019-03-29] MEDS: PROPOFOL 1,000 MG/100 ML VIAL IV PRN ×5 (01:44→22:56)
[2019-03-29] MEDS: LORazepam 2 MG/ML VIAL IV PRN (01:46)
[2019-03-29] MEDS: IPRATROPIUM BROM 0.5MG/2.5ML NEB SCH ×4 (01:50→20:40)
[2019-03-29] MEDS: ALBUTEROL 2.5 MG/3 ML NEB SOL NEB SCH ×4 (01:50→20:40)
[2019-03-29] MEDS: METHYLPREDNISOLONE 125 MG INJ IV SCH ×3 (02:30→17:58)
[2019-03-29] MEDS ORDERED: VANCOMYCIN 1.5 GM in NA CHLORIDE 0.9% 500 ML IVPB SCH (03:00)
[2019-03-29] MEDS: FENTANYL CITR 100 MCG/2 ML IV PRN ×4 (03:59→20:58)
[2019-03-29 05:07] LABS: Absolute Lymphocytes (CBC) 0.4 K/uL (0.7-4.9); Basophils % 0.3 % (0-1.3); Hematocrit 21.5 % (36.0-45.0); MPV 9.1 fL (7.6-11.3); RBC Red Blood Cell Count 2.61 M/uL (3.86-4.86)
[2019-03-29 05:17] LABS: Magnesium 2.2 mg/dL (1.8-2.4); Phosphorus 5.2 mg/dL (2.5-4.9)
[2019-03-29 05:18] LABS: Albumin 1.7 g/dL (3.4-5.0); Bilirubin Total 0.6 mg/dL (0.2-1.0); Potassium 4.1 mmol/L (3.5-5.1); Protein, Total 5.2 g/dL (6.4-8.2)
[2019-03-29] MEDS: LEVOTHYROXINE SOD 0.125 MG TAB PO SCH (05:42)
[2019-03-29 05:55] LABS: Arterial Blood Carboxyhemoglob 1.6 % (0-1.5); Blood Gas Oxyhemoglobin 95.9 % (94-97)
[2019-03-29 07:10] VITALS: BMI 30.3
--- NOTE | 2019-03-29 07:43 | RAD REPORT ---
EXAM DESCRIPTION: RAD - Chest Single View - 03/29/2019 7:27 am CLINICAL HISTORY: Pneumonia, intubation COMPARISON: March 28 TECHNIQUE: AP portable chest image was obtained 0724 hours . FINDINGS: ET tube and NG tube remain in place. There has been significant clearing of the dense bila teral airspace opacification. Substantial opacification remains. No cavitation. Heart and vasculature are normal. No measurable pleural effusion and no pneumothorax. No acute bony abnormality seen. No a cute aortic findings suspected. IMPRESSION: Significant clearing of bilateral airspace disease. Significant opacification remains. ET tube and NG tube remain in good position.
--- NOTE | 2019-03-29 08:03 | P.PN ---
Subjective Date of Service: 03/29/19 Chief Complaint: Respiratory failure pneumonia Subjective: Worsening (- seen , s/p intubated yesterday after worsneing resop status - family were initially undecided but pt now DNR -overnight no new issues -) Review of Systems 10-point ROS is otherwise unremarkable Physical Examination - Vital Signs Temperature: 98.7 F Blood Pressure: 152/67 Pulse: 87 Respirations: 25 Pulse Ox (%): 91 - Physical Exam General: Other (sedated) HEENT: Atraumatic, Normocephalic, PERRLA, Other (orally tubed ) Neck: 2+ carotid pulse no bruit, JVD not distended Respiratory: Crackles/rales Cardiovascular: Regular rate/rhythm, Normal S1 S2 Gastrointestinal: Normal bowel sounds, No tenderness Neurological: Other (sedated and on vent ) - Studies Laboratory Last Values WBC 8.6 K/uL (4.3-10.9) 03/29/19 04:35 RBC 2.61 M/uL (3.86-4.86) L 03/29/19 04:35 Hgb 7.1 g/dL (12.0-15.0) L* 03/29/19 04:35 Hct 21.5 % (36.0-45.0) L D 03/29/19 04:35 MCV 82.3 fL (80-100) 03/29/19 04:35 MCH 27.3 pg (27.0-35.0) 03/29/19 04:35 MCHC 33.2 g/dL (32.0-36.0) 03/29/19 04:35 RDW 16.2 % (12.1-15.2) H 03/29/19 04:35 Plt Count 214 K/uL (152-406) 03/29/19 04:35 MPV 9.1 fL (7.6-11.3) 03/29/19 04:35 Neutrophils % 91.2 % (41.7-73.7) H 03/29/19 04:35 Lymphocytes % 5.0 % (15.3-44.8) L 03/29/19 04:35 Monocytes % 3.5 % (3.3-12.3) 03/29/19 04:35 Eosinophils % 0.0 % (0-4.4) 03/29/19 04:35 Basophils % 0.3 % (0-1.3) 03/29/19 04:35 Absolute Neutrophils 7.8 K/uL (1.8-8.0) 03/29/19 04:35 Absolute Lymphocytes 0.4 K/uL (0.7-4.9) L 03/29/19 04:35 Absolute Monocytes 0.3 K/uL (0.1-1.3) 03/29/19 04:35 Absolute Eosinophils 0.0 K/uL (0-0.5) 03/29/19 04:35 Absolute Basophils 0.0 K/uL (0-0.5) 03/29/19 04:35 Morphology Comment Not seen (NOT SEEN) 03/27/19 09:20 PT 12.6 SECONDS (9.5-12.5) H 03/27/19 09:20 INR 1.07 03/27/19 09:20 APTT 36.9 SECONDS (24.3-36.9) 03/27/19 09:20 pH 7.39 (7.35-7.45) 03/29/19 05:30 pCO2 36.1 mmHG (35-45) 03/29/19 05:30 pO2 99.7 mmHG (75-100) 03/29/19 05:30 HCO3 21.4 mmol/L (22-28) L 03/29/19 05:30 Base Excess -2.7 mmol/L 03/29/19 05:30 Oxyhemoglobin 95.9 % (94-97) 03/29/19 05:30 ABG O2 Sat (Measured) 98.0 % (92-98.5) 03/29/19 05:30 ABG Carboxyhemoglobin 1.6 % (0-1.5) H 03/29/19 05:30 ABG Methemoglobin 0.5 % (0-1.5) 03/29/19 05:30 Other Total Hgb 7.0 g/dl (12-18) L 03/29/19 05:30 Inspired O2 65.0 % 03/29/19 05:30 Sodium 145 mmol/L (136-145) 03/29/19 04:35 Potassium 4.1 mmol/L (3.5-5.1) 03/29/19 04:35 Chloride 115 mmol/L (98-107) H 03/29/19 04:35 Carbon Dioxide 22 mmol/L (21-32) 03/29/19 04:35 BUN 51 mg/dL (7-18) H 03/29/19 04:35 Creatinine 1.83 mg/dL (0.55-1.3) H 03/29/19 04:35 Estimated GFR 27 mL/min (=/>90) L 03/29/19 04:35 Glucose 142 mg/dL (74-106) H 03/29/19 04:35 POC Glucose 144 mg/dl (65-120) H 03/27/19 09:23 Lactic Acid 1.7 mmol/L (0.4-2.0) 03/27/19 12:40 Calcium 7.7 mg/dL (8.5-10.1) L 03/29/19 04:35 Phosphorus 5.2 mg/dL (2.5-4.9) H 03/29/19 04:35 Magnesium 2.2 mg/dL (1.8-2.4) 03/29/19 04:35 Iron 12.0 ug/dL (50-170) L 03/27/19 09:20 TIBC 228 ug/dL (250-460) L 03/27/19 09:20 Transferrin 163 mg/dL (200-360) L 03/27/19 09:20 Transferrin % Sat 5.3 % (20.0-50.0) L 03/27/19 09:20 Ferritin 18.7 ng/mL (8-388) 03/27/19 09:20 Total Bilirubin 0.6 mg/dL (0.2-1.0) 03/29/19 04:35 Direct Bilirubin 0.2 mg/dL (0-0.2) 03/27/19 09:20 AST 41 U/L (15-37) H 03/29/19 04:35 ALT 17 U/L (12-78) 03/29/19 04:35 Alkaline Phosphatase 53 U/L (45-117) 03/29/19 04:35 Creatine Kinase 102 U/L (26-192) 03/27/19 09:20 CK-MB (CK-2) 1.7 ng/mL (0.3-3.6) 03/27/19 09:20 Rapid Troponin I < 0.02 ng/mL (0.0-0.045) 03/27/19 09:20 Troponin I 0.07 ng/mL (0.0-0.045) H 03/28/19 04:24 Serum Total Protein 5.2 g/dL (6.4-8.2) L 03/29/19 04:35 Albumin 1.7 g/dL (3.4-5.0) L 03/29/19 04:35 Globulin 3.5 g/dL (2.3-3.5) 03/29/19 04:35 Albumin/Globulin Ratio 0.5 (1.1-1.8) L 03/29/19 04:35 Lipase 78 U/L (73-393) 03/27/19 09:20 Procalcitonin 0.21 ng/mL (<0.50) 03/27/19 09:20 Urine pH 5.5 (5.0-7.0) 03/27/19 09:53 Ur Specific [place] 1.025 (1.005-1.030) 03/27/19 09:53 Urine Ketones Negative (NEG) 03/27/19 09:53 Urine Blood 2+ (NEG) H 03/27/19 09:53 Urine Nitrite Negative (NEG) 03/27/19 09:53 Ur Leukocyte Esterase Negative (NEG) 03/27/19 09:53 Urine RBC 10-20 /HPF (NONE SEEN) H 03/27/19 09:50 Urine WBC 5-10 /HPF (<5) H 03/27/19 09:50 Ur Squamous Epith Cells <5 /HPF (NONE SEEN) 03/27/19 09:50 Urine Bacteria Loaded /HPF (<20) H 03/27/19 09:50 Coarse Granular Casts 0-5 /LPF (NONE SEEN) 03/27/19 09:50 Urine Mucus 2+ /HPF (NONE SEEN) 03/27/19 09:50 Urine Culture Reflexed Reflexed 03/27/19 09:50 U Random Total Protein 271 mg/dL (<11.9) H 03/28/19 15:44 Urine Creatinine 17.0 mg/dL (20-320) L 03/28/19 15:44 Protein/Creatinin Ratio 15.94 ratio (<0.15) H 03/28/19 15:44 Urine Glucose Negative (NEG) 03/27/19 09:53 Urine Total Protein 3+ (NEG) H 03/27/19 09:53 Vancomycin Trough 12.1 ug/mL (5.0-20.0) 03/29/19 01:43 ABO/Rh A POSITIVE 03/27/19 10:15 Antibody Screen Negative 03/27/19 10:15 Crossmatch See Detail 03/27/19 Unknown Medications List Reviewed: Yes Assessment & Plan - Problems (Diagnosis) (1) Bilateral pneumonia Current Visit: Yes Status: Acute (2) HTN (hypertension) Onset Date: 04/24/17 Current Visit: No Status: Chronic Qualifiers: (3) Hypothyroidism Current Visit: No Status: Chronic Qualifiers: (4) Pneumonia Current Visit: No Status: Resolved Qualifiers: (5) Hematuria Current Visit: Yes Status: Acute (6) E. coli UTI Current Visit: Yes Status: Acute (7) Nephrotic range proteinuria Current Visit: Yes Status: Acute Physician Review: Patient Assessed, Agree with Above Assessment and Plan Physician Review Additional Text: # Acute resp failure - due to b/l pna -on abx - s/p stopped zosyn , will restart given associated resistant E coli UTI -c/w vanco and levaquin - Pulmonary to manage vent - follow ANCA levels # B/l PNA - continue abx - follow blood cx and sputum c/s # HTN - c/w IV hydralazine prn # ARF / Nephrotic syndrome / Hematuria - follow trend - may need renal biopsy - c/w IV steroids for now - will obtain hab1c level -hold losartan # E coli UTI - restart Zosyn # DVT prop - on sc heparin patient evaluated , will d/w with fmaily when present today , totla time spent > 40 mins Time Spent Managing Pts Care (In Minutes): 40
[2019-03-29] MEDS ORDERED: CLONIDINE 0.2 MG/PATCH TD SCH (09:00)
[2019-03-29] MEDS ORDERED: FUROSEMIDE 20 MG/ 2ML VIAL IV SCH (09:00)
[2019-03-29] MEDS: VERAPAMIL SR 180 MG TAB PO SCH (09:00)
[2019-03-29] MEDS: FERROUS SULFATE 325 MG TAB PO SCH (09:00)
[2019-03-29] MEDS: GUAIFENESIN 600 MG SA TAB PO SCH ×3 (09:00→20:44)
[2019-03-29] MEDS: PIPER/TAZO/NS 2.25gm 2.25 GM/50 ML BAG IVPB SCH ×2 (09:48→17:58)
[2019-03-29] MEDS: HYDRALAZINE HCL 25 MG TABLET PO SCH ×4 (09:49→20:44)
[2019-03-29] MEDS: FAMOTIDINE 20 MG/2 ML VIAL IV SCH (09:50)
[2019-03-29] MEDS: cloNIDine HCL 0.1 MG TAB PO SCH ×2 (09:50→20:43)
[2019-03-29] MEDS: ROPINIROLE HCL 0.25 MG TAB PO SCH ×2 (09:51→20:42)
[2019-03-29] MEDS: VERAPAMIL HCL 120 MG TAB FT SCH (09:52)
--- NOTE | 2019-03-29 10:30 | P.PN ---
Subjective Date of Service: 03/30/19 Chief Complaint: Respiratory failure pneumonia Patient had to be intubated yesterday due to respiratory distress apparently during insertion often is a gastric tube patient has significant bleeding currently she is hemodynamically stable hemoglobin is low oxygen requirements have declined currently a 45% oxygen with a peep of 10 there is no evidence of upper GI bleeding most likely resolved from the upper airway patient is currently being transfused blood pressure still little elevated on low-dose Lasix and culture was positive of E coli that is resistant to levofloxacin Review of Systems is unable to be obtained Physical Examination - Vital Signs Temperature: 98.7 F Blood Pressure: 163/74 Pulse: 78 Respirations: 25 Pulse Ox (%): 91 - Physical Exam General: Unresponsive Respiratory: Crackles/rales, Expiratory wheezes Cardiovascular: No edema, Regular rate/rhythm Gastrointestinal: Normal bowel sounds - Studies Microbiology Data (last 24 hrs): 03/27/19 09:50 Clean Catch Urine [place] Count - Final >100,000 CFU/ML. 03/27/19 09:50 Clean Catch Urine - Final Escherichia Coli Medications List Reviewed: Yes Assessment & Plan - Problems (Diagnosis) (1) Respiratory failure Current Visit: Yes Status: Acute Plan: Patient admitted with respiratory failure chest x-ray is significantly better IV increase the peep to 10 no evidence all 5 GI bleeding anemic patient been transfused urine culture positive for E coli resistant to levofloxacin is currently on Zosyn urinalysis are normal probably chronic renal disease white count is normal hemoglobin decline despite a transfusion yesterday she is currently being transfused patient does see GI as an outpatient has had endoscopies urinalysis does not show any significant hematuria she may have just pulmonary hemorrhage or a vasculitis there has been a relative decline in her hemoglobin patient to be transfused another unit today 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 Can Dc vancomycin schedule for bronchoscopy tomorrow discuss with the son obtained a consent will only do of bronchioalveolar lavage no biopsies Qualifiers: Chronicity: acute Physician Review: Patient Assessed, Agree with Above Assessment and Plan
--- NOTE | 2019-03-29 10:34 | CON ---
Date of Consultation: 03/28/2019 Chief Complaint: Acute kidney injury. History Of Present Illness: The patient is 74-year-old female with past medical history of hypertension, hypothyroidism, hyperlipidemia, coronary artery disease, and congestive heart failure. Patient has history of recurrent pneumonia. She presented to the hospital because of shortness of breath, cough , fever, chills, and for at least 1 week prior to this admission she denied sick contact. She was admitted because of dyspnea. She was in ICU. She denies trauma to the abdomen or to chest area. She was found to have acute kidney injury. The creatinine was 1.53. Baseline was ranging from 0.7 to 0.8. She was started on O2 nasal cannula for hypoxemic respiratory failure. Lactic acid is elevated. The patient was primarily given IV fluid, but when she developed shortness of breath, she was started on non-rebreather mask. She was never intubated before. She was told she had congestive heart failure and previous treatments of pneumonia. Past Medical History: Hypertension, hypothyroidism, hyperlipidemia. Social History: She is lifelong smoker. Denies alcohol or illicit drugs. Family History: Significant for breast cancer. Review of Systems: Unobtainable. The patient cannot provide review of systems due to current condition. She is on non-rebreather mask. Physical Examination: Vital Signs: Blood pressure 144/76, heart rate is 102, respiratory rate 24, temperature 99.1. General: Patient is in moderate respiratory distress. Eyes: Anicteric sclerae. EOMI. Ears, Nose, Mouth, and Throat: Oral mucosa moist. No pallor. Neck: Supple. No bruits. Lungs: Clear to auscultation bilaterally. Cardiovascular: S1, S2. Regular rate and rhythm. Abdomen: Soft, obese, nontender. No rebound, no guarding. EXTREMITIES: Slight edema present in both legs. Neurologic: no tremor, CN intact Laboratory Data: Hemoglobin 6.6, WBC 8.2, platelet count 232,000. Lactic acid 3.4, creatinine 1.5, potassium 4.5, sodium 141, CO2 58, pCO2 37, INR 1.07, pH 7.4. Impression And Plan: 1. Acute on chronic kidney injury. Baseline creatinine level is 0.8. Patient developed cardiorenal syndrome, prerenal azotemia, renal function has not improved wit IV fluids . Patient has congestive heart failure with diastolic dysfunction, bilateral pneumonia, multifocal pneumonia, community acquired. There is systemic inflammatory response syndrome and sepsis, anemia and hypertension. Patient developed moderately severe acute kidney injury, which remains nonoliguric. Over last 24 hours, renal function has not improved significantly. Patient has severe prerenal azotemia due to condition related to sepsis with pneumonia. Avoid nephrotoxic medication. Continue IV antibiotics according to renal dose. 2. Hypertension, borderline. Hold blood pressure medication. Patient may require IV hydralazine as needed. The patient is started on p.o. hydralazine. Advance medication accordingly. 3. Acute kidney injury. Continue mild hydration, but patient might require diuretic or volume control as well. Plan is to evaluate for proteinuria, check vasculitis panel and continue antibiotics for urinary tract infection. NELLIE/MODL Voice ID: [id number] Report ID: [id number] MTDD
[2019-03-29 14:34] LABS: Arterial Blood Carboxyhemoglob 1.6 % (0-1.5); Blood Gas Oxyhemoglobin 89.4 % (94-97); Blood O2 Saturation 91.5 % (92-98.5)
[2019-03-29] MEDS ORDERED: NACHLORIDE 0.45% 1,000 ML IV SCH (15:00)
[2019-03-29] MEDS: Levofloxacin500mg IV 500 MG/100 ML BAG IV SCH (15:12)
--- NOTE | 2019-03-29 16:09 | RAD REPORT ---
EXAM DESCRIPTION: RAD - Abdomen 1 View (KUB) - 03/29/2019 4:03 pm CLINICAL HISTORY: NGT placement COMPARISON: No comparisons FINDINGS: Tip of the NG tube is at the gastroesophageal junction. Side port of the tube is still in the distal esophagus. Stomach is decompressed. Endotracheal tube is mid aortic arch level. Extensive lung parenchymal opaci fication is still present. IMPRESSION: NG tube has been placed. Tip is at the GE junction and not within the lumen of the stoma ch. Side port of the NG tube is in the distal esophagus.
[2019-03-29] MEDS ORDERED: VANCOMYCIN 250 MG in NA CHLORIDE 0.9% 100 ML IVPB ONE (17:00)
--- NOTE | 2019-03-29 17:44 | RAD REPORT ---
EXAM DESCRIPTION: RAD - Abdomen 1 View (KUB) - 03/29/2019 5:39 pm CLINICAL HISTORY: Orogastric tube placement COMPARISON: Abdomen 1 View (KUB) dated 03/29/2019 FINDINGS: OGT has been advanced. Tip and side port of the tubing are within the decompressed stomach .
[2019-03-29 18:46] LABS: Hematocrit 25.2 % (36.0-45.0)
[2019-03-29 22:06] LABS: Urine Appearance CLOUDY; Urine Bilirubin NEGATIVE (NEG); Urine Blood NEGATIVE (NEG); Urine Color YELLOW; Urine Glucose NEGATIVE (NEG); Urine Protein 2+ (NEG); Urine Urobilinogen 0.2 mg/dL (0.2-1.0)
[2019-03-29 23:01] LABS: Urine Culture Reflex Order NOT NEEDED
[2019-03-29 23:02] LABS: Urine Waxy Casts 0-5 /LPF (NONE SEEN)
[2019-03-29 23:04] LABS: Urine Coarse Granular Casts 0-5 /LPF (NONE SEEN)
[2019-03-29 23:06] LABS: Urine Bacteria <20 /HPF (<20)
--- NOTE | 2019-03-30 00:19 | PN ---
Date of Progress Note: 03/29/2019 Chief Complaint: Acute on chronic kidney injury associated with prerenal azotemia, nonoliguric ATN and cardiorenal syndrome, pending work-up for proteinuria and hematuria to evaluate for any evidence of nephritis. History Of Present Illness: Creatinine level has worsened since yesterday, but there is nonoliguric urine output. Patient is intubated. Patient developed respiratory failure with hypoxemic respiratory failure. She was short of breath. She was on non-rebreather mask and currently she is intubated. Patient has history of recurrent pneumonia, congestive heart failure, coronary artery disease, hyperlipidemia, and hypothyroidism, hypertension, hypertensive heart and kidney disease. Review of Systems: Unobtainable. Patient is intubated and cannot provide review of systems. Physical Examination: Lungs: Coarse breath sound bilaterally. Heart: S1, S2. No pericardial friction rub. Abdomen: Soft, benign. Extremities: Slight edema in both legs. Laboratory Data: Hemoglobin 8.5, WBC 8.6, platelet count is 214,000. Sodium 142, potassium 4.2, chloride 115, CO2 of 22, BUN 51, creatinine 1.83, glucose 142, calcium 7.7, phosphorus 5.2, magnesium 2.2. CK level 102,000. Renal ultrasound showed small bilateral kidney cyst. Left kidney 11 cm with increased echotexture. Right kidney 11 cm in length with increased echotexture. Parenchymal kidney disease secondary to medical renal disease. Impression And Plan: 1. Acute on chronic kidney injury with prerenal azotemia, nonoliguric acute tubular necrosis and possible nephritis. Patient is treated for respiratory failure and required intubation. Patient will continue antibiotics and CK level was checked to rule out rhabdomyolysis. There is no evidence of rhabdomyolysis. Patient has congestive heart failure, diastolic dysfunction, bilateral pneumonia, multifocal pneumonia, community-acquired systemic inflammatory response system and sepsis, acute on chronic blood loss and hypertension. Patient is on blood pressure medication and blood pressure were adjusted. Patient has [id number] acute kidney injury which remains nonoliguric. Patient is started on IV fluids with mild hydration to prevent hypernatremia. Sodium level was elevated. Plan is to avoid nephrotoxic medication. Continue IV antibiotics and to screen for proteinuria and screen for possible vasculitis. 2. Acute kidney injury. Patient may require diuretics as well as adjustment of blood pressure medication. Monitor blood pressure and adjust medication accordingly. Work-up pending to evaluate for possible nephritis. I spent 36 min including 25 min to coordinate care plan. NELLIE/KARIN Voice ID: [id number] Report ID: [id number] MTDD
[2019-03-30] MEDS: PIPER/TAZO/NS 2.25gm 2.25 GM/50 ML BAG IVPB SCH ×3 (00:34→16:40)
[2019-03-30] MEDS: METHYLPREDNISOLONE 125 MG INJ IV SCH ×3 (01:19→16:40)
[2019-03-30] MEDS: IPRATROPIUM BROM 0.5MG/2.5ML NEB SCH ×4 (02:18→20:11)
[2019-03-30] MEDS: ALBUTEROL 2.5 MG/3 ML NEB SOL NEB SCH ×4 (02:18→20:11)
[2019-03-30] MEDS: PROPOFOL 1,000 MG/100 ML VIAL IV PRN ×6 (02:23→22:19)
[2019-03-30] MEDS: HYDRALAZINE HCL 20 MG/ML VIAL IV PRN ×2 (04:35→22:20)
[2019-03-30 05:16] LABS: Absolute Lymphocytes (CBC) 0.6 K/uL (0.7-4.9); Basophils % 0.3 % (0-1.3); Hematocrit 26.1 % (36.0-45.0); Lymphocytes % 5.5 % (15.3-44.8); MPV 9.2 fL (7.6-11.3); RBC Red Blood Cell Count 3.18 M/uL (3.86-4.86)
[2019-03-30 05:31] LABS: Bilirubin Total 0.7 mg/dL (0.2-1.0); Magnesium 2.6 mg/dL (1.8-2.4); Phosphorus 5.9 mg/dL (2.5-4.9); Protein, Total 5.6 g/dL (6.4-8.2)
[2019-03-30] MEDS: LEVOTHYROXINE SOD 0.125 MG TAB PO SCH (06:00)
[2019-03-30] MEDS: FENTANYL CITR 100 MCG/2 ML IV PRN ×3 (06:25→21:50)
[2019-03-30] MEDS ORDERED: NACHLORIDE 0.45% 1,000 ML IV SCH (07:00)
[2019-03-30 07:39] LABS: Blood Morphology Comment NOT SEEN (NOT SEEN); Platelet Estimate ADEQ
[2019-03-30] MEDS ORDERED: LIDOCAINE VISCOUS 2% SOLN 15 ML UDC ONE (07:47)
[2019-03-30] MEDS ORDERED: LIDOCAINE 1% MPF 30 ML VIAL ONE (07:48)
[2019-03-30] MEDS: FENTANYL CITR 100 MCG/2 ML ONE (08:07)
--- NOTE | 2019-03-30 08:54 | P.PN ---
Subjective Date of Service: 04/08/19 Chief Complaint: Respiratory failure pneumonia Patient's condition is stable status post bronchoscopy significant blood aspirated Review of Systems is unable to be obtained Physical Examination - Vital Signs Temperature: 98.7 F Blood Pressure: 163/74 Pulse: 78 Respirations: 25 Pulse Ox (%): 91 - Physical Exam General: Moderate distress Respiratory: Crackles/rales, Expiratory wheezes Cardiovascular: No edema, Normal S1 S2 - Studies Microbiology Data (last 24 hrs): 03/27/19 09:50 Clean Catch Urine [place] Count - Final >100,000 CFU/ML. 03/27/19 09:50 Clean Catch Urine - Final Escherichia Coli Medications List Reviewed: Yes Assessment & Plan - Problems (Diagnosis) (1) Respiratory failure Status: Acute Plan: Patient admitted with respiratory failure presume secondary to diffuse alveolar hemorrhage syndrome increase Solu-Medrol t every 8 hr usual dose is 500 to a 1000 mg for 4 or 5 days bronchioalveolar lavage done. Dc IV fluids renal function is worse no hematuria hemoglobin is stable she is at 3 units of packed red blood cells so far recommend transfer to a tertiary care unit she may need a biopsy echocardiogram is pending Qualifiers: Chronicity: acute Physician Review: Patient Assessed, Agree with Above Assessment and Plan
--- NOTE | 2019-03-30 08:55 | P.OP ---
Date of Service: 03/30/19 (Bronchoscopy with a BAL) Findings and Operative Technique Patient is 74 years of age admitted with diffuse bilateral airspace disease with decline in hemoglobin possible diffuse alveolar hence the reason for bronchoscopy Narrative report after obtaining informed consent from the patient's son she was premedicated with fentanyl patient already have the propofol significant amount of blood was aspirated from the respiratory tract BAL was performed patient tolerated the procedure very well no biopsies done Difficult to examine the respiratory tract no obvious lesions or blood in the upper airway was visible
[2019-03-30] MEDS: GUAIFENESIN 600 MG SA TAB PO SCH ×2 (09:00→21:00)
[2019-03-30] MEDS: FAMOTIDINE 20 MG/2 ML VIAL IV SCH (09:17)
[2019-03-30] MEDS: VERAPAMIL HCL 120 MG TAB FT SCH (09:18)
[2019-03-30] MEDS: ROPINIROLE HCL 0.25 MG TAB PO SCH ×2 (09:18→21:16)
[2019-03-30] MEDS: HYDRALAZINE HCL 25 MG TABLET PO SCH ×3 (09:18→21:14)
[2019-03-30] MEDS: cloNIDine HCL 0.1 MG TAB PO SCH ×2 (09:18→21:14)
--- NOTE | 2019-03-30 11:29 | ECHO ---
HEIGHT: 5 ft 5 in WEIGHT: 182 lb 6.4 oz DATE OF STUDY: 03/30/[address]: Osvaldo Chester MD 2-DIMENSIONAL: YES M.MODE: YES DOPPLER: YES COLOR FLOW: YES TDS: NO PORTABLE: NO DEFINITY: NO BUBBLE STUDY: NO DIAGNOSIS: SHORTNESS OF BREATH CARDIAC HISTORY: CATHERIZATION: NO SURGERY: NO PROSTHETIC VALVE: NO PACEMAKER: NO MEASUREMENTS (cm) DIASTOLIC (NORMALS) SYSTOLIC (NORMALS) IVSd 1.0 (0.6-1.2) LA Diam 3.7 (1.9-4.0) LVEF 60-69% LVIDd 4.3 (3.5-5.7) LVIDs 3.3 (2.0-3.5) %FS 25% LVPWd 1.0 (0.6-1.2) Ao Diam 2.2 (2.0-3.7) 2 DIMENSIONAL ASSESSMENT: RIGHT ATRIUM: NORMAL LEFT ATRIUM: NORMAL RIGHT VENTRICLE: NORMAL LEFT VENTRICLE: NORMAL TRICUSPID VALVE: NORMAL MITRAL VALVE: NORMAL PULMONIC VALVE: NORMAL AORTIC VALVE: NORMAL PERICARDIAL EFFUSION: NONE AORTIC ROOT: NORMAL LEFT VENTRICULAR WALL MOTION: NORMAL. DOPPLER/COLOR FLOW: MILD MITRAL AND TRICUSPID REGURGITATION. MILD PULMONARY HYPERTENSION. ESTIMATED RIGHT VENTRICULAR SYSTOLIC PRESSURE 45mmHg. COMMENTS: NORMAL 2D ECHO. MILD MITRAL AND TRICUSPID REGURGITATION. MILD PULMONARY HYPERTENSION. TECHNOLOGIST: ARIANNA SCHILLING
--- NOTE | 2019-03-30 11:36 | P.DS ---
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 coli UTI Current Visit: Yes Status: Acute (7) Nephrotic range proteinuria Current Visit: Yes Status: Acute Brief History of Present Illness: pt with hx of recurrent pneumonia admitetd fro SOB , cough and weakness. She was noted with low h/h at 6.6 but guaic neg. CXR shows diffuse alveolar infiltrate. Ch chest shows multifocal pneumonia . She continued to have worsneing 02 need and started on Bipap at the ER Hospital Course: She was admitted to ICU , given 2 unit of PRBC , started on abx with gentle IVF. Pulmonary consult was obtained , UA shows 10-20 rbc and steroids was added with lab for ANCA obtained . She continued to decompensate despite hold of IVF and laisx diuresis . She was intubated after extenson discussion with korey and also made DNR on 03/28 pm . Her creatinine continue to worsen from 1.5 on adm to 2.0 now . A Bronch done today shows diffuse alveolar hemorrhage . SHE IS BEING TRANSFERRED FOR POSSIBLE B[place]ILLA-PULMONARY SYNDROME WITH SUSPECTED ANCA vasculitis Vital Signs/Physical Exam: Temp Pulse Resp BP Pulse Ox 98.7 F 76 25 H 163/74 H 91 03/30/19 08:54 03/30/19 09:18 03/30/19 08:54 03/30/19 09:18 03/30/19 08:54 General: In no apparent distress HEENT: Atraumatic, Normocephalic (on vent fio2 50%) Neck: 2+ carotid pulse no bruit, JVD not distended Respiratory: Crackles/rales, Expiratory wheezes Cardiovascular: Normal pulses, Regular rate/rhythm, Normal S1 S2 Gastrointestinal: Normal bowel sounds, Soft and benign Musculoskeletal: No clubbing, No swelling Neurological: Other (sedated) Laboratory Data at Discharge: WBC 11.4 K/uL (4.3-10.9) H D 03/30/19 04:51 Hgb 8.7 g/dL (12.0-15.0) L 03/30/19 04:51 Hct 26.1 % (36.0-45.0) L 03/30/19 04:51 Plt Count 206 K/uL (152-406) 03/30/19 04:51 PT 12.6 SECONDS (9.5-12.5) H 03/27/19 09:20 INR 1.07 03/27/19 09:20 APTT 36.9 SECONDS (24.3-36.9) 03/27/19 09:20 Sodium 144 mmol/L (136-145) 03/30/19 04:51 Potassium 4.0 mmol/L (3.5-5.1) 03/30/19 04:51 BUN 74 mg/dL (7-18) H D 03/30/19 04:51 Creatinine 2.29 mg/dL (0.55-1.3) H 03/30/19 04:51 Glucose 160 mg/dL (74-106) H 03/30/19 04:51 Phosphorus 5.9 mg/dL (2.5-4.9) H 03/30/19 04:51 Magnesium 2.6 mg/dL (1.8-2.4) H 03/30/19 04:51 Total Bilirubin 0.7 mg/dL (0.2-1.0) 03/30/19 04:51 AST 23 U/L (15-37) 03/30/19 04:51 ALT 16 U/L (12-78) 03/30/19 04:51 Alkaline Phosphatase 54 U/L (45-117) 03/30/19 04:51 Troponin I 0.07 ng/mL (0.0-0.045) H 03/28/19 04:24 Lipase 78 U/L (73-393) 03/27/19 09:20 Home Medications: Baclofen 10 mg PO DAILYPRN PRN 03/27/19 Fluticasone Furoate [Arnuity Ellipta] 1 spray IN DAILYPRN PRN 03/27/19 Hydralazine HCl 50 mg PO TID 03/27/19 Ropinirole HCl 0.5 mg PO BID 03/27/19 Verapamil HCl [Verapamil ER] 180 mg PO DAILY 03/27/19 Diet: npo Activity: Bedrest Time spent managing pt's care (in minutes): 45
--- NOTE | 2019-03-30 11:50 | RAD REPORT ---
EXAM DESCRIPTION: Emanuel Single View03/30/2019 9:38 am CLINICAL HISTORY: Chest pain COMPARISON: March FINDINGS: An endotracheal tube has its tip 5 centimeters above the carlos. An orogastric tube has its tip in the stomach Mild improvement in the left and no significant change in the right diffuse alveolar opacities
[2019-03-30] MEDS ORDERED: FUROSEMIDE 40 MG/4 ML VIAL IV ONE (13:02)
[2019-03-30] MEDS: Levofloxacin500mg IV 500 MG/100 ML BAG IV SCH (13:40)
[2019-03-30] MEDS ORDERED: NEPRO 1,000 ML BOT RTH SCH (14:00)
[2019-03-30] MEDS ORDERED: VITAL HP 1,000 ML BOT RTH SCH (15:00)
[2019-03-30 19:41] LABS: Rheumatoid Factor NEG (NEG)
[2019-03-30 23:31] VITALS: O2SAT 97
[2019-03-30] MEDS: LORazepam 2 MG/ML VIAL IV PRN (23:38)
--- NOTE | 2019-03-31 01:48 | PN ---
Date of Progress Note: 03/30/2019 Chief Complaint: Acute kidney injury, nonoliguric associated with respiratory failure. History Of Present Illness: Patient had a bronchoscopy done today and it showed hemorrhagic changes. Patient is undergoing workup to evaluate pulmonary renal syndrome, ANCA and anti-GBM test is pending and results are not available. Cardiac echo showed mitral and tricuspid regurgitation, mild pulmonary hypertension, estimated right ventricular systolic pressure of 45, otherwise it was normal echo according to report. Renal function has declined since yesterday, patient has nonoliguric urine output. Patient is intubated. She cannot provide review of systems. Patient was started on IV fluids to prevent hypernatremia and to prevent renal hypoperfusion. She has been treated with antibiotics and urine culture was positive for E coli, fungal blood cultures are pending and lung biopsies acid- fast bacilli culture and smear pending. Blood cultures preliminary report showed no growth. Preliminary workup showed significant proteinuria and urine protein electrophoresis with immunofixation are pending to check for any evidence of monoclonal gammopathy of unknown significance. Review of Systems: Unobtainable. Patient is intubated. Physical Examination: Lungs: Coarse breath sounds bilaterally. Heart: S1, S2. Abdomen: Obese, soft, nontender. Extremities: Edema present. Impression And Plan: Acute kidney injury. Renal function has declined over the last 24 hours and has gradually decline since March 28 and creatinine on March 28 was 1.38 and today is 2.28. BUN is elevated and has risen from 32 to 74. Patient may require dialysis if renal function does not stabilize. Electrolytes are in acceptable ranges. Potassium is 4.0, sodium 144, chloride 111, CO2 of 22, calcium is 7.9, and phosphorus 5.9. Patient has hypoalbuminemia and workup is pending to rule out a monoclonal gammopathy of unknown significance. Troponin level was less than 0.02. Cardiac echo did not show systolic dysfunction. There is pulmonary hypertension present. Patient may require a renal biopsy at this point. Due to urinary tract infection, biopsy is on hold and serology tests are pending to rule out vasculitis and to check for any evidence of anti-GBM disease. Prognosis is guarded. 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 Serology tests are pending and culture obtained to rule out infectious disease involving the lung. I spent 36 min including 25 min to coordinate care plan. EB/MODL Voice ID: [id number] Report ID: [id number] SESAR
[2019-03-31] MEDS ORDERED: VANCOMYCIN 1.75 GM in NA CHLORIDE 0.9% 500 ML IVPB SCH (05:00)
[2019-04-01 11:39] LABS: Anti-Cardiolipin IgA Antibody <11 APL (<=11)
[2019-04-02 04:25] LABS: Albumin, (SPE) 2.3 g/dL (3.8-4.8); Alpha-1-Globulins 0.6 g/dL (0.2-0.3); Alpha-2-Globulins 0.6 g/dL (0.5-0.9); Gamma Globulins 0.9 g/dL (0.8-1.7); INTERPRETATION REPORT
[2019-04-08 21:15] VITALS: BP 163/74; TEMP 98.7
== END 2019-03-30 23:40 | disposition short-term general hospital (02) | DRG 208 ==
LOC: ER 09:11 → ERHOLD 13:38 → 3RD-ICU 14:41
PROVIDERS: ADMIT Internal Medicine; ATTEND Internal Medicine
PROC: 30233N1 Transfusion of Nonautologous Red Blood Cells into Peripheral Vein, Percutaneous Approach (ICD-10-PCS; principal; 2019-03-27)
PROC: 30233N1 Transfusion of Nonautologous Red Blood Cells into Peripheral Vein, Percutaneous Approach (ICD-10-PCS; 2019-03-27)
PROC: 5A1945Z Respiratory Ventilation, 24-96 Consecutive Hours (ICD-10-PCS; 2019-03-29)
PROC: 5A09457 Assistance with Respiratory Ventilation, 24-96 Consecutive Hours, Continuous Positive Airway Pressure (ICD-10-PCS; 2019-03-29)
PROC: 30233N1 Transfusion of Nonautologous Red Blood Cells into Peripheral Vein, Percutaneous Approach (ICD-10-PCS; 2019-03-29)
PROC: 0B9M8ZX Drainage of Bilateral Lungs, Via Natural or Artificial Opening Endoscopic, Diagnostic (ICD-10-PCS; 2019-03-30)
DX: J96.01 Acute respiratory failure with hypoxia (principal); J18.9 Pneumonia, unspecified organism; N17.0 Acute kidney failure with tubular necrosis; R65.20 Severe sepsis without septic shock; N39.0 Urinary tract infection, site not specified; I13.0 Hypertensive heart and chronic kidney disease with heart failure and stage 1 through stage 4 chronic kidney disease, or unspecified chronic kidney disease; I50.32 Chronic diastolic (congestive) heart failure; M31.0 Hypersensitivity angiitis; B96.20 Unspecified Escherichia coli [E. coli] as the cause of diseases classified elsewhere; N18.9 Chronic kidney disease, unspecified; D50.0 Iron deficiency anemia secondary to blood loss (chronic); E03.9 Hypothyroidism, unspecified; E78.5 Hyperlipidemia, unspecified; I25.10 Atherosclerotic heart disease of native coronary artery without angina pectoris; R31.9 Hematuria, unspecified; I77.6 Arteritis, unspecified; Z66 Do not resuscitate
CPT/HCPCS: 36415; 36430; 51702; 71045; 71260; 74018; 76770; 80048; 80053; 80076; 80202; 81001; 81003; 81015; 82550; 82553; 82570; 82728; 82805; 82947; 83036; 83516; 83520; 83540; 83605; 83690; 83735; 84100; 84145; 84156; 84165; 84466; 84484; 85014; 85018; 85025; 85610; 85730; 86021; 86038; 86147; 86160; 86162; 86430; 86850; 86900; 86901; 87015; 87040; 87070; 87077; 87086; 87088; 87102; 87116; 87186; 87205; 87206; 88108; 88305; 93005; 93306; 94002; 94003; 94640; 94660; 94760; 96361; 96374; 96375; 99285; J0330; J0360; J0692; J0696; J1630; J1940; J2270; J2405; J2543; J2704; J2920; J2930; J3010; J7030; J7040; P9016; Q9967